=== PATIENT | female | born 1995 | race Caucasian/White ===

== ENCOUNTER 2016-11-05 15:44 | Emergency (ER) | payer SELFPAY | END 2016-11-05 16:47 | disposition home or self-care (01) | DX: J02.0 Streptococcal pharyngitis (principal); Z87.891 Personal history of nicotine dependence ==

== ENCOUNTER 2019-01-14 08:54 | Emergency (ER) | payer MEDICAID ==
--- NOTE | 2019-01-14 09:38 | ED Physician Documentation ---
PD HPI URI - Stated complaint Stated Complaint: COUGHING BLOOD/21WKS PREG - Chief complaint Chief Complaint: Resp - History obtained from History obtained from: Patient, Family - History of Present Illness Timing - onset: How many weeks ago (1) Timing duration: Weeks (1) Timing details: Gradual onset, Still present Associated symptoms: Ear pain, Nasal congestion, Rhinorrhea, Sinus pain, Productive cough, Hemoptysis Improves by: Rest, Medication Worsened by: Activity Similar symptoms before: Has not had sx before Recently seen: Clinic - Additional information Additional information: 23-year-old 2 para 1 female is 21 weeks and she has developed a cough for the past week. She is producing yellow-green phlegm she has some sinus pain especially in the right maxillary sinus and she is beginning to feel fatigued from this. She has had some bloody nose and she has coughed up some blood as well. She last saw her COPYRIGHT CLERK about 2 weeks ago at which time she had a saline infusion and was placed on iron supplements. She believes she was anemic but does not know a specific number. The patient reports decreased movement this morning. Review of Systems Constitutional: reports: Myalgias, Fatigue. 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 : None HEENT: None Psych: Depression Musculoskeletal: Chronic back pain Derm: None - Past Surgical History Past Surgical History: Yes /CITY DESIGNER: Other - Present Medications Home Medications: Ambulatory Orders Medication Instructions Recorded Confirmed Amox/Clav 875/125 [Augmentin] 1 each PO Q12H #20 tablet 01/14/19 - Allergies Allergies/Adverse Reactions: Allergies Allergy/AdvReac Type Severity Reaction Status Date / Time No Known Drug Allergies Allergy Verified 01/14/19 09:09 - Social History Does the pt smoke?: No Smoking Status: Never smoker Does the pt drink ETOH?: Yes Does the pt have substance abuse?: No - Immunizations Immunizations are current?: Yes - POLST Patient has POLST: No PD ED PE NORMAL - Vitals Vital signs reviewed: Yes (hypertensive mild ) - General General: Alert and oriented X 3, No acute distress, Well developed/nourished - HEENT HEENT: Atraumatic, PERRL, EOMI, Ears normal, Moist mucous membranes, Pharynx benign, Dentition benign, Other (There is bilateral maxillary sinus tenderness worse on the right. ) - Neck Neck: Supple, no meningeal sign, No bony TTP - Cardiac Cardiac: RRR, No murmur - Respiratory Respiratory: No respiratory distress, Clear bilaterally - Abdomen Abdomen: Soft, Non tender, Other (gravid uterus to the umbilicus non-tender. ) - Back Back: No CVA TTP, No spinal TTP - Derm Derm: Normal color, Warm and dry, No rash - Extremities Extremities: No deformity, No edema - Neuro Neuro: Alert and oriented X 3, roller coaster designer 2-12 intact, No motor deficit, No sensory deficit, Normal speech Eye Opening: Spontaneous Motor: Obeys Commands Verbal: Oriented GCS Score: 15 - Psych Psych: Normal mood, Normal affect Results - Vitals Vitals: Vital Signs - 24 hr 01/14/19 01/14/19 09:07 09:09 Temperature 36.4 C L Heart Rate 82 87 Respiratory 14 16 Rate Blood Pressure 128/87 H 128/87 H O2 Saturation 97 97 Oxygen O2 Source Room air - EKG (time done) 0919 Rate: Rate (enter#) (73) Rhythm: NSR Compare to prior EKG: Changed from prior EKG (SPT 07-07-14 rate has decreased) Computer interpretation: Agree with computer Procedures - Bedside sono Bedside sono by EMP: With use of bedside ultrasound the fetus is imaged the heart tones are 144 and the fetus does move. - IVC sono (time) 0930 Bedside IVC sono: IVC measures (cm) (1.94), Euvolemia PD MEDICAL DECISION MAKING - ED course Complexity details: reviewed results, re-evaluated patient, considered differential, d/w patient ED course: 23 y/o female who is 21 weeks has a cough and congestion and has maxillary sinusitis on exam and clear lungs. Departure - Departure Disposition: 01 Home, Self Care Clinical Impression: Acute sinusitis Condition: Stable Instructions: ED Sinusitis Abx Tx Follow-Up: Elma Mitchell DNP [Primary Care Provider] - Lynda Hernandes MD [Physician No Access] - Prescriptions: Amox/Clav 875/125 [Augmentin] 1 each PO Q12H #20 tablet Forms: Activity restrictions
[2019-01-14 09:59] VITALS: BP 126/81
== END 2019-01-14 09:59 | disposition home or self-care (01) ==
LOC: ED 08:54
DX: O99.89 Other specified diseases and conditions complicating pregnancy, childbirth and the puerperium (principal); J01.90 Acute sinusitis, unspecified; Z3A.21 21 weeks gestation of pregnancy
CPT/HCPCS: 93005; 99283

== ENCOUNTER 2019-04-12 08:11 | Observation (INO) | payer MEDICAID ==
[2019-04-12] MEDS ORDERED: LACTATED RINGERS 1,000 ML IV ONE ×2 (08:32→08:44)
[2019-04-12] MEDS ORDERED: ONDANSETRON 4 MG/2 ML VIAL IVP PRN (08:33)
[2019-04-12] MEDS ORDERED: ONDANSETRON 4 MG/2 ML VIAL ONE (08:44)
[2019-04-12] MEDS ORDERED: SODIUM CHLORIDE FLUSH 0.9% 10 ML SYRINGE ONE ×4 (08:44→23:01)
[2019-04-12] MEDS: ONDANSETRON 4 MG/2 ML VIAL IVP PRN ×3 (09:52→22:57)
[2019-04-12] MEDS: FAMOTIDINE 20 MG/2 ML VIAL IVP SCH ×2 (10:03→22:16)
[2019-04-12 10:08] LABS: BASOPHILS # (AUTO) 0.1 10^3/uL (0.0-0.1); BASOPHILS % (AUTO) 0.4 %; EOSINOPHILS % (AUTO) 0.2 %; HGB - HEMOGLOBIN 10.1 g/dL (12.0-16.0); LYMPHOCYTES # (AUTO) 1.6 10^3/uL (1.5-3.5); LYMPHOCYTES % (AUTO) 13.6 %; MEAN CORPUSCULAR HEMOGLOBIN 22.3 pg (27.0-31.0); MEAN CORPUSCULAR HGB CONC 30.1 g/dL (32.0-36.0); MEAN CORPUSCULAR VOLUME 74.3 fL (81.0-99.0); MEAN PLATELET VOLUME 9.5 fL (7.9-10.8); MONOCYTES # (AUTO) 0.5 10^3/uL (0.0-1.0); MONOCYTES % (AUTO) 4.4 %; NEUTROPHILS # (AUTO) 9.5 10^3/uL (1.5-6.6); NEUTROPHILS % (AUTO) 80.7 %; PLT - PLATELET COUNT 226 10^3/uL (130-450); RED BLOOD COUNT 4.52 10^6/uL (4.20-5.40); RED CELL DISTRIBUTION WIDTH 14.5 % (12.0-15.0); WHITE BLOOD COUNT 11.7 x10^3/uL (4.8-10.8)
[2019-04-12] MEDS: DEXTROSE 5%-LACTATED RINGERS 1,000 ML IV SCH ×2 (10:12→18:47)
[2019-04-12 10:13] LABS: BILIRUBIN,URINE NEGATIVE (NEGATIVE); GLUCOSE, URINE (UA) NEGATIVE (NEGATIVE); KETONES,URINE (UA) 40 mg/dL (NEGATIVE); LEUKOCYTE ESTERASE, URINE SMALL (NEGATIVE); NITRITE,URINE NEGATIVE (NEGATIVE); OCCULT BLOOD,URINE NEGATIVE (NEGATIVE); PH,URINE 8.5 PH (5.0-7.5); PROTEIN,URINE 30 mg/dL (NEGATIVE); UROBILINOGEN,URINE 0.2 (NORMAL) E.U./dL (NORMAL)
[2019-04-12 10:14] LABS: CLARITY,URINE SL. CLOUDY (CLEAR)
[2019-04-12 10:20] LABS: ALBUMIN 2.9 g/dL (3.2-5.5); ALBUMIN/GLOBULIN RATIO 0.8 (1.0-2.2); BILIRUBIN,TOTAL 1.1 mg/dL (0.2-1.0); CALCIUM 8.4 mg/dL (8.5-10.3); CREATININE 0.5 mg/dL (0.4-1.0); TOTAL PROTEIN 6.6 g/dL (6.7-8.2)
[2019-04-12] MEDS ORDERED: fent/BUPIV 2 MCG/0.125% 250 ML EP ONE (10:23)
[2019-04-12 10:26] LABS: BACTERIA,URINE Moderate /HPF (None Seen); RBC,URINE None Seen /HPF (0-5); SQUAMOUS EPITHELIAL CELL,UR RARE Squamous (<= Few)
[2019-04-12 10:27] LABS: AMORPHOUS SEDIMENT,UR Moderate /LPF
--- NOTE | 2019-04-12 10:28 | PREOP HISTORY & PHYSICAL ---
DATE OF SERVICE: 04/12/2019 Physician: Fran Shepherd MD PATIENT IDENTIFICATION: Patient is a 23-year-old G2, P1, ABO female whose EDC is 23 May by early visits and ultrasound. This makes her 34 weeks and 0 days. CHIEF COMPLAINT: Nausea and vomiting. HISTORY OF PRESENT ILLNESS: Patient states that since yesterday morning she has had difficulty with nausea and vomiting, has not been able to keep anything down. She has had emesis roughly 12 times. She was seen by her PHLEBOTOMIST MEDICAL LAB ASSISTANT physician yesterday. She has been taking Zofran for her nausea and vomiting with minimal success. She has had difficulty with morning sickness, roughly since 4 weeks gestational age and has had a lot of nausea and vomiting throughout her . She states she has had some chills and has felt cold. She has also had some diarrhea. She has had some left-sided abdominal pain. She denies any other family members with any nausea or vomiting at this time. She states with her first child she had difficulty with nausea and vomiting throughout her entire . LABORATORIES: Patient is noted to be A positive. Her 50 gram Glucola is in the normal range. She has an ultrasound, which was also noted to have been normal. PAST MEDICAL HISTORY: Positive for heartburn. 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 MEDICATIONS: She is takin. vitamins. 2. Zofran on a p.r.n. Basis. 3. Zantac for heartburn. ALLERGIES: NONE KNOWN. HABITS: Patient denies use of alcohol, tobacco, street or addictive drugs or cannabinoids. SOCIAL HISTORY: Patient is and lives with her spouse. 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 She is currently on leave because of her morning sickness. REVIEW OF SYSTEMS: Positive for some diabetes. OBSTETRIC HISTORY: First child was born at 39-week spontaneous vaginal delivery. was complicated with morning sickness. PHYSICAL EXAMINATION: GENERAL: Patient is a well-developed, well-nourished white female. She is somewhat restless in the bed at this time. She is sitting because of difficulty with heartburn. VITAL SIGNS: Her temperature is 36.7, pulse 80, blood pressure 129/84, respirations 18. HEENT: Pupils are equal, round. Extraocular muscles are intact. Thyroid is not palpably enlarged. Mouth is clear. HEART: Regular rate and rhythm without murmurs. LUNGS: Lung peterson are clear without rales or wheezes. BACK: No spinal or CVA tenderness noted. ABDOMEN: Soft, nontender, gravid of the appropriate size. There is no evidence of rebound, particularly in the right side of the abdomen. There is no calf tenderness or CVA tenderness. IMPRESSION: 1. A 23-year-old G2, P1 at 34 weeks gestational age. 2. Recurrent nausea and vomiting. At this point, I suspect it is a continuation of her morning sickness. PLAN: We will obtain CMP, urinalysis. We will continue with her IV. We will add D5LR to the second bag. We will utilize Zofran again 4 mg IV as well as place her on Pepcid IV. We will direct therapy as labs return. TD: 04/12/2019 10:06 MTDD
[2019-04-12] MEDS: PROMETHAZINE INJ 25 MG in SODIUM CHLORIDE 0.9% 50 ML IV PRN ×2 (11:20→17:23)
[2019-04-12 17:06] LABS: AMYLASE 118 U/L (28-100); LIPASE 90 U/L (22-51)
[2019-04-13] MEDS: DEXTROSE 5%-LACTATED RINGERS 1,000 ML IV SCH ×2 (03:22→07:53)
[2019-04-13] MEDS: ONDANSETRON 4 MG/2 ML VIAL IVP PRN (06:57)
[2019-04-13] MEDS ORDERED: SODIUM CHLORIDE FLUSH 0.9% 10 ML SYRINGE ONE (07:01)
[2019-04-13 08:10] VITALS: BP 115/70
--- NOTE | 2019-04-17 15:55 | PROVIDER PROGRESS NOTE ---
Subjective - Prog Note Date Prog Note Date: 04/12/19 Prog Note Time: 16:00 - Subjective Pt reports feeling: Improved (pt is now able to tolerate food oraly) Objective - Lab Results Fish Bones: 04/12/19 09:59 04/12/19 09:59 Assessment/Plan - Problem List (1) Hyperemesis Impression: Pt is now able to tolerate food. Discharge medication Zofram Phenergan sup 12.5 mg Zantac Followup with Ob provider.
== END 2019-04-13 09:41 | disposition home or self-care (01) ==
LOC: WFO 08:11 → FBP 08:13 → WFO 10:35 → FBP 10:36
PROVIDERS: ADMIT Obstetrics & Gynecology; ATTEND Obstetrics & Gynecology
DX: O21.0 Mild hyperemesis gravidarum (principal); Z3A.34 34 weeks gestation of pregnancy
CPT/HCPCS: 36415; 80053; 81001; 82150; 83690; 85025; 87086; 96361; 96365; 96375; 96376; 99214; G0378; J7040; J7120

== ENCOUNTER 2019-04-14 09:15 | Observation (INO) | payer MEDICAID ==
[2019-04-14] MEDS ORDERED: PROMETHAZINE INJ 12.5 MG in SODIUM CHLORIDE 0.9% 50 ML IV PRN (09:54)
[2019-04-14] MEDS ORDERED: LACTATED RINGERS 1,000 ML IV ONE (09:55)
[2019-04-14] MEDS ORDERED: DEXTROSE 5%-LACTATED RINGERS 1,000 ML IV SCH (10:00)
[2019-04-14] MEDS ORDERED: SODIUM CHLORIDE FLUSH 0.9% 10 ML SYRINGE ONE ×2 (10:10→20:19)
[2019-04-14] MEDS: ONDANSETRON 4 MG/2 ML VIAL IVP PRN ×2 (10:15→12:19)
[2019-04-14 10:31] LABS: BASOPHILS # (AUTO) 0.1 10^3/uL (0.0-0.1); BASOPHILS % (AUTO) 0.6 %; EOSINOPHILS % (AUTO) 0.3 %; LYMPHOCYTES # (AUTO) 2.2 10^3/uL (1.5-3.5); LYMPHOCYTES % (AUTO) 22.3 %; MEAN CORPUSCULAR HEMOGLOBIN 23.1 pg (27.0-31.0); MEAN CORPUSCULAR HGB CONC 31.4 g/dL (32.0-36.0); MEAN CORPUSCULAR VOLUME 73.4 fL (81.0-99.0); MEAN PLATELET VOLUME 9.3 fL (7.9-10.8); MONOCYTES # (AUTO) 0.7 10^3/uL (0.0-1.0); MONOCYTES % (AUTO) 6.6 %; NEUTROPHILS # (AUTO) 6.9 10^3/uL (1.5-6.6); NEUTROPHILS % (AUTO) 69.5 %; PLT - PLATELET COUNT 240 10^3/uL (130-450); RED BLOOD COUNT 4.33 10^6/uL (4.20-5.40); RED CELL DISTRIBUTION WIDTH 14.4 % (12.0-15.0)
[2019-04-14 10:33] LABS: BILIRUBIN,URINE NEGATIVE (NEGATIVE); GLUCOSE, URINE (UA) NEGATIVE (NEGATIVE); KETONES,URINE (UA) 15 mg/dL (NEGATIVE); LEUKOCYTE ESTERASE, URINE SMALL (NEGATIVE); NITRITE,URINE NEGATIVE (NEGATIVE); OCCULT BLOOD,URINE NEGATIVE (NEGATIVE); PH,URINE 8.5 PH (5.0-7.5); PROTEIN,URINE TRACE mg/dL (NEGATIVE); UROBILINOGEN,URINE 0.2 (NORMAL) E.U./dL (NORMAL)
[2019-04-14 10:43] LABS: ALBUMIN 2.9 g/dL (3.2-5.5); ALBUMIN/GLOBULIN RATIO 0.8 (1.0-2.2); BILIRUBIN,TOTAL 0.8 mg/dL (0.2-1.0); CALCIUM 8.4 mg/dL (8.5-10.3); CREATININE 0.4 mg/dL (0.4-1.0); TOTAL PROTEIN 6.4 g/dL (6.7-8.2)
[2019-04-14 10:43] LABS: CLARITY,URINE HAZY (CLEAR)
[2019-04-14 10:51] LABS: AMORPHOUS SEDIMENT,UR Few /LPF; BACTERIA,URINE Rare /HPF (None Seen); RBC,URINE 0-5 /HPF (0-5); SQUAMOUS EPITHELIAL CELL,UR FEW Squamous (<= Few)
[2019-04-14] MEDS ORDERED: diphenhydrAMINE INJ 50 MG/ML VIAL IVP PRN (11:16)
[2019-04-14 11:17] LABS: AMYLASE 69 U/L (28-100); LIPASE 35 U/L (22-51)
[2019-04-14] MEDS: FAMOTIDINE 20 MG/2 ML VIAL IVP SCH ×2 (11:27→21:45)
[2019-04-14] MEDS: ceFAZolin 2 GM in SODIUM CHLORIDE 0.9% 100ML 100 ML IV SCH ×2 (11:42→20:19)
[2019-04-14] MEDS ORDERED: MORPHINE 10 MG/ML VIAL IVP ONE (12:01)
[2019-04-14] MEDS ORDERED: ONDANSETRON 4 MG/2 ML VIAL IVP PRN (12:14)
[2019-04-14] MEDS: DEXTROSE 5%-LACTATED RINGERS 1,000 ML IV SCH ×3 (12:20→21:00)
--- NOTE | 2019-04-14 12:25 | Ultrasound Report ---
Reason: nausea, vomiting, UQ pain, elevated amylase, lipas Procedure Date: 04/14/2019 Accession Number: [id number] / [id number] Procedure: US - Abdomen Limited CPT Code: FULL RESULT: EXAM: ABDOMEN LIMITED EXAM DATE: 04/14/2019 10:43 AM INDICATION: Nausea, vomiting, UQ pain, elevated amylase, lipase. COMPARISONS: ABDOMEN/PELVIS W/ 04/06/2016. FINDINGS: Liver: Normal in size and echotexture. Limited visualization of the left liver due to body habitus and position of the liver high in the upper abdomen. Right liver measures 15 cm. Main portal vein flow: Hepatopetal. Gallbladder: Normal. No stones, wall thickening, or sonographic Salazar's sign. Biliary System: CBD measures 4 mm. No intrahepatic or extrahepatic ductal dilatation. Pancreas: Obscured by bowel gas. Right kidney: 11 cm. Dilated right renal pelvis measures 18 mm. Distal right ureter measures 15 mm. Abdominal aorta and IVC: Normal. Other: Study limited by third trimester and overlying bowel and bowel gas. IMPRESSION: 1. Study limited by advanced . 2. Left liver lobe not well seen due to superior position of the liver and high in the upper abdomen. Given the limitations, no liver mass or intrahepatic bile duct dilation. 3. Normal gallbladder and common bile duct. Pancreas largely obscured by bowel gas. 4. Moderate right hydronephrosis. No definite stone or mass. Hydronephrosis may be secondary to advanced or distal ureteral stone. 5. Pancreas not well seen due to bowel gas. RADIA
[2019-04-14] MEDS ORDERED: oxyCODONE 5 MG TABLET PO PRN (13:00)
--- NOTE | 2019-04-14 20:09 | PROVIDER PROGRESS NOTE ---
Subjective - Prog Note Date Prog Note Date: 04/14/19 Prog Note Time: 20:06 - Subjective Pt reports feeling: Improved (Pain is 2/10. tolerating food in small ammounts. spirits much improved) Objective - Vital Signs/Intake & Output Reviewed Vital Signs: Yes Vital Signs: Vital Signs x48h Temp Pulse Resp BP Pulse Ox 04/14/19 19:46 37 C 76 18 116/66 99 04/14/19 15:49 36.5 C 80 18 122/73 97 04/14/19 12:23 36.5 C 77 16 129/77 97 Intake & Output: Intake & Output 04/11/19 04/12/19 04/13/19 04/14/19 23:59 23:59 23:59 23:59 Intake Total 3092.5 Output Total 1050 Balance 2042.5 - Objective Back: positive: CVA tenderness (R) (improved from this AM) Neurologic/Psychiatric: positive: Oriented x3 - Lab Results Fish Bones: 04/14/19 10:15 04/14/19 10:15 Other Labs: Lab Results x24hrs 04/14/19 04/14/19 04/14/19 Range/Units 10:15 10:15 10:15 WBC 10.0 (4.8-10.8) x10^3/uL RBC 4.33 (4.20-5.40) 10^6/uL Hgb 10.0 L (12.0-16.0) g/dL Hct 31.8 L (37.0-47.0) % MCV 73.4 L (81.0-99.0) fL MCH 23.1 L (27.0-31.0) pg MCHC 31.4 L (32.0-36.0) g/dL RDW 14.4 (12.0-15.0) % Plt Count 240 (130-450) 10^3/uL MPV 9.3 (7.9-10.8) fL Neut # (Auto) 6.9 H (1.5-6.6) 10^3/uL Lymph # (Auto) 2.2 (1.5-3.5) 10^3/uL [place] # (Auto) 0.7 (0.0-1.0) 10^3/uL Eos # (Auto) 0.0 (0.0-0.7) 10^3/uL Baso # (Auto) 0.1 (0.0-0.1) 10^3/uL Absolute Nucleated RBC 0.00 x10^3/uL Nucleated RBC % 0.0 /100WBC Sodium 136 (135-145) mmol/L Potassium 3.3 L (3.5-5.0) mmol/L Chloride 104 (101-111) mmol/L Carbon Dioxide 20 L (21-32) mmol/L Anion Gap 12.0 (6-13) BUN 6 (6-20) mg/dL Creatinine 0.4 (0.4-1.0) mg/dL Estimated GFR (MDRD) 194 (>89) Glucose 85 (70-100) mg/dL Calcium 8.4 L (8.5-10.3) mg/dL Total Bilirubin 0.8 (0.2-1.0) mg/dL AST 20 (10-42) IU/L ALT 15 (10-60) IU/L Alkaline Phosphatase 116 (42-121) IU/L Total Protein 6.4 L (6.7-8.2) g/dL Albumin 2.9 L (3.2-5.5) g/dL Globulin 3.5 (2.1-4.2) g/dL Albumin/Globulin Ratio 0.8 L (1.0-2.2) Amylase 69 (28-100) U/L Lipase 35 (22-51) U/L Urine Color Urine Clarity (CLEAR) Urine pH (5.0-7.5) PH Ur Specific [place] (1.002-1.030) Urine Protein (NEGATIVE) mg/dL Urine Glucose (UA) (NEGATIVE) mg/dL Urine Ketones (NEGATIVE) mg/dL Urine Occult Blood (NEGATIVE) Urine Nitrite (NEGATIVE) Urine Bilirubin (NEGATIVE) Urine Urobilinogen (NORMAL) E.U./dL Ur Leukocyte Esterase (NEGATIVE) Urine RBC (0-5) /HPF Urine WBC (0-5) /HPF Ur Squamous Epith Cells (<= Few) Amorphous Sediment /LPF Urine Bacteria (None Seen) /HPF Urine Culture Comments 04/14/19 Range/Units 09:20 WBC (4.8-10.8) x10^3/uL RBC (4.20-5.40) 10^6/uL Hgb (12.0-16.0) g/dL Hct (37.0-47.0) % MCV (81.0-99.0) fL MCH (27.0-31.0) pg MCHC (32.0-36.0) g/dL RDW (12.0-15.0) % Plt Count (130-450) 10^3/uL MPV (7.9-10.8) fL Neut # (Auto) (1.5-6.6) 10^3/uL Lymph # (Auto) (1.5-3.5) 10^3/uL [place] # (Auto) (0.0-1.0) 10^3/uL Eos # (Auto) (0.0-0.7) 10^3/uL Baso # (Auto) (0.0-0.1) 10^3/uL Absolute Nucleated RBC x10^3/uL Nucleated RBC % /100WBC Sodium (135-145) mmol/L Potassium (3.5-5.0) mmol/L Chloride (101-111) mmol/L Carbon Dioxide (21-32) mmol/L Anion Gap (6-13) BUN (6-20) mg/dL Creatinine (0.4-1.0) mg/dL Estimated GFR (MDRD) (>89) Glucose (70-100) mg/dL Calcium (8.5-10.3) mg/dL Total Bilirubin (0.2-1.0) mg/dL AST (10-42) IU/L ALT (10-60) IU/L Alkaline Phosphatase (42-121) IU/L Total Protein (6.7-8.2) g/dL Albumin (3.2-5.5) g/dL Globulin (2.1-4.2) g/dL Albumin/Globulin Ratio (1.0-2.2) Amylase (28-100) U/L Lipase (22-51) U/L Urine Color YELLOW Urine Clarity HAZY (CLEAR) Urine pH 8.5 H (5.0-7.5) PH Ur Specific [place] 1.010 (1.002-1.030) Urine Protein TRACE (NEGATIVE) mg/dL Urine Glucose (UA) NEGATIVE (NEGATIVE) mg/dL Urine Ketones 15 H (NEGATIVE) mg/dL Urine Occult Blood NEGATIVE (NEGATIVE) Urine Nitrite NEGATIVE (NEGATIVE) Urine Bilirubin NEGATIVE (NEGATIVE) Urine Urobilinogen 0.2 (NORMAL) (NORMAL) E.U./dL Ur Leukocyte Esterase SMALL H (NEGATIVE) Urine RBC 0-5 (0-5) /HPF Urine WBC 0-3 (0-5) /HPF Ur Squamous Epith Cells FEW Squamous (<= Few) Amorphous Sediment Few /LPF Urine Bacteria Rare (None Seen) /HPF Urine Culture Comments INDICATED Assessment/Plan - Problem List (1) Hyperemesis arising during Impression: improving with IV fluids. (2) Pyelonephritis affecting in third trimester Impression: flank pain improving. will need 24-48 hours afebrile
[2019-04-14] MEDS: DOCUSATE SODIUM 100 MG CAPSULE PO SCH (21:46)
[2019-04-15] MEDS: DEXTROSE 5%-LACTATED RINGERS 1,000 ML IV SCH ×2 (02:39→11:19)
[2019-04-15] MEDS: ceFAZolin 2 GM in SODIUM CHLORIDE 0.9% 100ML 100 ML IV SCH ×4 (03:44→19:54)
--- NOTE | 2019-04-15 08:01 | PROVIDER PROGRESS NOTE ---
Subjective - Prog Note Date Prog Note Date: 04/15/19 Prog Note Time: 07:59 - Subjective Pt reports feeling: Improved Subjective: S - H she is feeling much better today.She denies any nausea or vomiting. She denies any flank pain. Objective - Vital Signs/Intake & Output Vital Signs: Vital Signs x48h Temp Pulse Resp BP Pulse Ox 04/15/19 03:42 36.5 C 79 16 99/58 L 98 Intake & Output: Intake & Output 04/12/19 04/13/19 04/14/19 04/15/19 23:59 23:59 23:59 23:59 Intake Total 3292.5 1286.25 Output Total 1050 900 Balance 2242.5 386.25 - Lab Results Fish Bones: 04/14/19 10:15 04/14/19 10:15 Other Labs: Lab Results x24hrs 04/14/19 04/14/19 04/14/19 Range/Units 10:15 10:15 10:15 WBC 10.0 (4.8-10.8) x10^3/uL RBC 4.33 (4.20-5.40) 10^6/uL Hgb 10.0 L (12.0-16.0) g/dL Hct 31.8 L (37.0-47.0) % MCV 73.4 L (81.0-99.0) fL MCH 23.1 L (27.0-31.0) pg MCHC 31.4 L (32.0-36.0) g/dL RDW 14.4 (12.0-15.0) % Plt Count 240 (130-450) 10^3/uL MPV 9.3 (7.9-10.8) fL Neut # (Auto) 6.9 H (1.5-6.6) 10^3/uL Lymph # (Auto) 2.2 (1.5-3.5) 10^3/uL [place] # (Auto) 0.7 (0.0-1.0) 10^3/uL Eos # (Auto) 0.0 (0.0-0.7) 10^3/uL Baso # (Auto) 0.1 (0.0-0.1) 10^3/uL Absolute Nucleated RBC 0.00 x10^3/uL Nucleated RBC % 0.0 /100WBC Sodium 136 (135-145) mmol/L Potassium 3.3 L (3.5-5.0) mmol/L Chloride 104 (101-111) mmol/L Carbon Dioxide 20 L (21-32) mmol/L Anion Gap 12.0 (6-13) BUN 6 (6-20) mg/dL Creatinine 0.4 (0.4-1.0) mg/dL Estimated GFR (MDRD) 194 (>89) Glucose 85 (70-100) mg/dL Calcium 8.4 L (8.5-10.3) mg/dL Total Bilirubin 0.8 (0.2-1.0) mg/dL AST 20 (10-42) IU/L ALT 15 (10-60) IU/L Alkaline Phosphatase 116 (42-121) IU/L Total Protein 6.4 L (6.7-8.2) g/dL Albumin 2.9 L (3.2-5.5) g/dL Globulin 3.5 (2.1-4.2) g/dL Albumin/Globulin Ratio 0.8 L (1.0-2.2) Amylase 69 (28-100) U/L Lipase 35 (22-51) U/L Urine Color Urine Clarity (CLEAR) Urine pH (5.0-7.5) PH Ur Specific [place] (1.002-1.030) Urine Protein (NEGATIVE) mg/dL Urine Glucose (UA) (NEGATIVE) mg/dL Urine Ketones (NEGATIVE) mg/dL Urine Occult Blood (NEGATIVE) Urine Nitrite (NEGATIVE) Urine Bilirubin (NEGATIVE) Urine Urobilinogen (NORMAL) E.U./dL Ur Leukocyte Esterase (NEGATIVE) Urine RBC (0-5) /HPF Urine WBC (0-5) /HPF Ur Squamous Epith Cells (<= Few) Amorphous Sediment /LPF Urine Bacteria (None Seen) /HPF Urine Culture Comments 04/14/19 Range/Units 09:20 WBC (4.8-10.8) x10^3/uL RBC (4.20-5.40) 10^6/uL Hgb (12.0-16.0) g/dL Hct (37.0-47.0) % MCV (81.0-99.0) fL MCH (27.0-31.0) pg MCHC (32.0-36.0) g/dL RDW (12.0-15.0) % Plt Count (130-450) 10^3/uL MPV (7.9-10.8) fL Neut # (Auto) (1.5-6.6) 10^3/uL Lymph # (Auto) (1.5-3.5) 10^3/uL [place] # (Auto) (0.0-1.0) 10^3/uL Eos # (Auto) (0.0-0.7) 10^3/uL Baso # (Auto) (0.0-0.1) 10^3/uL Absolute Nucleated RBC x10^3/uL Nucleated RBC % /100WBC Sodium (135-145) mmol/L Potassium (3.5-5.0) mmol/L Chloride (101-111) mmol/L Carbon Dioxide (21-32) mmol/L Anion Gap (6-13) BUN (6-20) mg/dL Creatinine (0.4-1.0) mg/dL Estimated GFR (MDRD) (>89) Glucose (70-100) mg/dL Calcium (8.5-10.3) mg/dL Total Bilirubin (0.2-1.0) mg/dL AST (10-42) IU/L ALT (10-60) IU/L Alkaline Phosphatase (42-121) IU/L Total Protein (6.7-8.2) g/dL Albumin (3.2-5.5) g/dL Globulin (2.1-4.2) g/dL Albumin/Globulin Ratio (1.0-2.2) Amylase (28-100) U/L Lipase (22-51) U/L Urine Color YELLOW Urine Clarity HAZY (CLEAR) Urine pH 8.5 H (5.0-7.5) PH Ur Specific [place] 1.010 (1.002-1.030) Urine Protein TRACE (NEGATIVE) mg/dL Urine Glucose (UA) NEGATIVE (NEGATIVE) mg/dL Urine Ketones 15 H (NEGATIVE) mg/dL Urine Occult Blood NEGATIVE (NEGATIVE) Urine Nitrite NEGATIVE (NEGATIVE) Urine Bilirubin NEGATIVE (NEGATIVE) Urine Urobilinogen 0.2 (NORMAL) (NORMAL) E.U./dL Ur Leukocyte Esterase SMALL H (NEGATIVE) Urine RBC 0-5 (0-5) /HPF Urine WBC 0-3 (0-5) /HPF Ur Squamous Epith Cells FEW Squamous (<= Few) Amorphous Sediment Few /LPF Urine Bacteria Rare (None Seen) /HPF Urine Culture Comments INDICATED - Other Results/Comments Other Results/Comments: O - Lungs: Lungs clear to auscultation bilaterally without wheezes, rales or Rhonchi Heart: Heart has regular rate and rhythm without murmur Abdomen: The abdomen is soft, pliable and nontender. The uterus is soft and nontender.The size seems much smaller however than her dates.No contractions are noted.There is a reactive NST noted. Assessment/Plan - Problem List (1) 34 weeks gestation of Impression: 1. Intrauterine at 34 and 4 days gestation 2.Hyperemesis-improved 3.Possible pyelonephritis-improved Plan-We will continue with the orders of the admitting physician. As long as she remains stable and as well today she will be discharged tomorrow. In the meantime we will obtain an OB ultrasound. It does seem that the fetus is small for dates.
--- NOTE | 2019-04-15 08:10 | HISTORY & PHYSICAL EXAMINATION ---
DATE OF SERVICE: 04/14/2019 Physician: Fran Shepherd MD IDENTIFICATION: Patient is a 23-year-old G2, P1, AB0 female whose EDC is 23 May by early ultrasound and visit. She is 34+2 weeks. CHIEF COMPLAINT: Nausea, vomiting, right flank pain. HISTORY OF PRESENT ILLNESS: Patient's has been complicated with morning sickness throughout her entire . She was seen on 04/12/2019, at which time she was admitted for IV hydration. After 24 hours, and utilization of Zofran, Phenergan, and H2 blockers, we were able to control her nausea. She went home that evening and that evening was eating a burrito, at which time she developed nausea and vomiting again. She was continuing to take her medication of Zofran, Phenergan, as well as Zantac. She states the middle of the night, she developed right flank pain and tenderness. She lists this is roughly a 4/10. She continues to have the inability to keep any fluids down or food. Her laboratory shows a white count of 10, her hemoglobin is 10, hematocrit is 31.8. Platelets are 240. Of note is the fact that her potassium is mildly depressed at 3.3. Her amylase and lipase, which previously were elevated, are now within normal limits of 20 and 15. Her calcium is minimally depressed at 8.4. Her urine, however, shows evidence of some small leukocytes. She has 0-3 WBCs per high power field and 0-5 RBCs per high power field. She is noted to have ketones at 15. Specific gravity is 1.010. Her previous urine grew out 10- 15,000 cultures per mL, which was polymicrobial and was suggestive of skin contaminants. PAST MEDICAL HISTORY: Positive for heartburn. SURGICAL HISTORY: She has had a cystic teratoma removed from her right ovary, 5 years ago. MEDICATIONS ON DISCHARGE 1. vitamins. 2. Zantac. 3. Zofran. 4. Phenergan suppositories. ALLERGIES: NONE KNOWN. HABITS: Negative. SOCIAL HISTORY: Patient is , lives with her spouse; is currently on leave because of her morning sickness. PHYSICAL EXAMINATION GENERAL: A well-developed, well-nourished female, who is intermittently vomiting. She appears to be somewhat uncomfortable. VITAL SIGNS: Temperature is 36.5. Heart rate is running in the 60s-80s, blood pressures 117/64, respirations 20, saturating 100% on room air. HEENT: Pupils are equal, round. Extraocular muscles are intact. CARDIOVASCULAR: Regular rate and rhythm without murmurs. LUNGS: Lung peterson are clear without rales or wheezes. BACK: She has some right flank tenderness to percussion. ABDOMEN: Soft, nontender. The gallbladder is nontender. She had an ultrasound, which showed evidence of a normal gallbladder. She is noted to have a right hydronephrosis, which is compatible with her state, as well as her flank tenderness. IMPRESSION 1. A 23-year-old G2, P1 female 34.2 weeks. 2. Recurrent nausea and vomiting with minimal electrolyte change. 3. Hydronephrosis. 4. Possible pyelonephritis. PLAN 1. The patient has been admitted. 2. She has been given Zofran 4 mg, which has been increased to 8 mg. 3. She is taking Benadryl 25 mg IV q.6 hours. 4. Phenergan 12.5 mg IV q.8 hours. 5. She is also on famotidine 20 mg IV b.i.d. 6. Because of the question of pyelonephritis, she has been started on Ancef 2 grams IV q.8 hours. 7. For pain, she has received 5 mg of morphine. We are aware that potentially could exacerbate her nausea. TD: 04/14/2019 12:29 MTDD
[2019-04-15] MEDS: FAMOTIDINE 20 MG/2 ML VIAL IVP SCH ×2 (09:03→21:16)
[2019-04-15] MEDS: DOCUSATE SODIUM 100 MG CAPSULE PO SCH (09:04)
[2019-04-15] MEDS ORDERED: SODIUM CHLORIDE FLUSH 0.9% 10 ML SYRINGE ONE (09:08)
--- NOTE | 2019-04-15 16:17 | Ultrasound Report ---
Reason: fundal height smaller than expected for gestation Procedure Date: 04/15/2019 Accession Number: [id number] / [id number] Procedure: US - OB F/U or Repeat CPT Code: FULL RESULT: EXAM: FOLLOW-UP OBSTETRICAL ULTRASOUND EXAM DATE: 04/15/2019 09:36 AM. CLINICAL HISTORY: Fundal height smaller than expected for gestation. COMPARISON: OB F/U OR REPEAT 04/15/2019 10:24 AM. TECHNIQUE: Real-time sonographic evaluation of the fetus performed by the boat oar maker. Multiple hvac sales representative static images were saved for review. DATING: Established EGA 34 weeks 4 days with BALJINDER 05/23/2019 based on working due date. EGA 34 weeks 3 days with BALJINDER 05/24/2019 based on the current ultrasound. GENERAL EVALUATION Morales . Cardiac activity: 159 bpm. movement: Visualized. Presentation: Cephalic. Placenta: Anterior and to the right position. Amniotic fluid: Normal. YU 11.5 cm. MVP 5.7 cm. BIOMETRY Bi-Parietal Diameter (BPD): 8.8 cm, 35 weeks 2 days Head Circumference (HC): 31.5 cm, 35 weeks 2 days Abdominal Circumference (AC): 30 cm, 33 weeks 6 days Femur Length (FL): 6.5 cm, 33 weeks 4 days Estimated Weight: 2366 g, 33rd percentile for 34 weeks 4 days. ANATOMY Anterior posterior renal pelvic diameter measures 6 mm, mild hydronephrosis. IMPRESSION: 1. Morales live intrauterine with gestational age 34 weeks 4 days based on working due date. 2. Estimated weight is within expected limits for assigned dating. 3. Mild left hydronephrosis as above. RADIA
[2019-04-15] MEDS ORDERED: SODIUM CHLORIDE FLUSH 0.9% 10 ML SYRINGE IVP PRN (18:33)
[2019-04-16] MEDS: ceFAZolin 2 GM in SODIUM CHLORIDE 0.9% 100ML 100 ML IV SCH (03:43)
[2019-04-16 08:24] VITALS: BP 116/67
[2019-04-16] MEDS: DOCUSATE SODIUM 100 MG CAPSULE PO SCH (08:24)
--- NOTE | 2019-04-16 08:32 | PROVIDER PROGRESS NOTE ---
Subjective - Prog Note Date Prog Note Date: 04/16/19 Prog Note Time: 08:30 - Subjective Pt reports feeling: Improved (Pain resolved completely, tolerating a regular diet. good FM.) Objective - Vital Signs/Intake & Output Reviewed Vital Signs: Yes Vital Signs: Vital Signs x48h Temp Pulse Resp BP Pulse Ox 04/16/19 08:00 36.5 C 98 16 116/67 04/16/19 03:51 36.6 C 64 16 110/58 L 98 Intake & Output: Intake & Output 04/13/19 04/14/19 04/15/19 04/16/19 23:59 23:59 23:59 23:59 Intake Total 3292.5 3856.25 600 Output Total 1050 3200 900 Balance 2242.5 656.25 -300 - Objective General Appearance: positive: No acute distress, Alert Respiratory: positive: Chest non-tender, No respiratory distress, Breath sounds nml Cardiovascular: positive: Regular rate & rhythm, No murmur, No gallop Abdomen: positive: Non-tender, No organomegaly, Nml bowel sounds, Mass (Gravid) Back: negative: CVA tenderness (R), CVA tenderness (L) Extremities: positive: Non-tender, Full ROM, Nml appearance Neurologic/Psychiatric: positive: Oriented x3 - Lab Results Fish Bones: 04/14/19 10:15 04/14/19 10:15 Assessment/Plan - Problem List (1) Hyperemesis arising during Impression: Resolved pt to continue with Antiemetics (2) Pyelonephritis affecting in third trimester Impression: unsure of actual [place] vs [place]. will continue with keflex at home for 7days total. Cultures negative. (3) 34 weeks gestation of Impression: pt to follow up with Ob fro routine care.
--- NOTE | 2019-04-16 08:42 | Discharge Plan ---
Discharge Plan Problem Reviewed?: Yes Disposition: Home, Self Care Condition: Good Diet: Regular Activity Restrictions: No Restrictions Shower Restrictions: No Driving Restrictions: No Weight Bearing: Full Weight Additional Instructions or Follow Up instructions: Followup with OB complete Antibiotics No Smoking: If you smoke, Please STOP! Call for help.
--- NOTE | 2019-04-16 09:12 | DISCHARGE SUMMARY ---
Physician: Fran Shepherd MD DATE OF ADMISSION: 04/14/2019 DATE OF DISCHARGE: 04/16/2019 ADMITTING DIAGNOSES 1. Forty weeks gestation. 2. Nausea and vomiting. 3. Pyelonephritis. DISCHARGE DIAGNOSES 1. Forty weeks gestation. 2. Nausea and vomiting. 3. Pyelonephritis. 4. Possible pyelonephritis versus hydronephrosis. PRESENTING HISTORY: Patient is a 23-year-old G2, P1, female whose EDC is 23 May. This made her 34+2 weeks. Her had been complicated with morning sickness throughout the entire . This became particularly worse on April 12, at which time she was admitted for IV hydration. She responded. She was sent home in 24 hours. However, she returned on the with inability to keep any food or fluids down, despite any medications. LABORATORIES: On admission, her sodium was noted to be within normal limits; however, her potassium was 3.3. Her glucose was 85. Her calcium was minimally depressed at 8.4. Amylase and lipase were noted to be normal; however, previously this has been elevated. Her white count was 10.0, hemoglobin was 10.0, hematocrit was 31.8, platelets were 240. Urinalysis showed her to have specific gravity of 1.010. Her ketones were high at 15. She was noted to have small leukocyte esterase, as well as 0-3 WBCs per high-power field. She had very few squamous cells. Culture was indicated and performed. Her ultrasound showed evidence of a moderate hydronephrosis. She had flank tenderness on the physical examination. HOSPITAL COURSE: Patient was admitted, started on IV fluids and antiemetics to include Zofran, Phenergan, Benadryl, promethazine IV. She was also placed on 2 grams of Ancef because of the question of whether she had pyelonephritis. During her hospitalization, her nausea and vomiting resolved with medication. Her flank tenderness, which was initially present, has totally resolved at this particular time. However, her urine cultures have been negative. We are discharging her to home today with instruction to follow up with her OB doctor. She is being sent home on her antiemetics, including Zofran, Compazine suppositories, Zantac. We will also continue her antibiotics of Keflex 250 q.i.d. for a total of 7 days or 5 additional days. She has been instructed to follow up with her OB doctor. TD: 04/16/2019 08:42 SHELLEY
== END 2019-04-16 08:45 | disposition home or self-care (01) ==
LOC: WFO 09:15 → FBP 09:17 → WFO 12:04 → FBP 12:05
PROVIDERS: ADMIT Obstetrics & Gynecology; ATTEND Obstetrics & Gynecology
DX: O21.2 Late vomiting of pregnancy (principal); O99.283 Endocrine, nutritional and metabolic diseases complicating pregnancy, third trimester; E87.6 Hypokalemia; E83.51 Hypocalcemia; O99.89 Other specified diseases and conditions complicating pregnancy, childbirth and the puerperium; N13.30 Unspecified hydronephrosis; Z3A.34 34 weeks gestation of pregnancy; Z87.42 Personal history of other diseases of the female genital tract
CPT/HCPCS: 76705; 76816; 80053; 81001; 82150; 83690; 85025; 87086; 96361; 96365; 96366; 96367; 96375; 96376; 99214; A9270; G0378; J1200; J7040; J7120

== ENCOUNTER 2019-05-06 20:46 | Inpatient (IN) | payer MEDICAID ==
[2019-05-06] MEDS ORDERED: SODIUM CHLORIDE FLUSH 0.9% 10 ML SYRINGE IVP PRN (22:48)
[2019-05-06] MEDS ORDERED: LACTATED RINGERS 1,000 ML IV SCH (23:00)
[2019-05-06] MEDS ORDERED: NALBUPHINE 10 MG/1 ML IVP PRN (23:20)
--- NOTE | 2019-05-06 23:23 | HISTORY & PHYSICAL EXAMINATION ---
Admit History - Visit Reason Visit Reason: Contractions (The patient came in tonight complaining of increasing contractions all day. She had been 2 cm in the office on her prior visit. She is a 2 para 1-0-0-1 with an BALJINDER of 05/23/2019 making her approximately 37 weeks and 4 days gestation.She had previous care in [place] and is recently transferred care to [facility].She had been admitted in April for a possible kidney infection. She has not had any other problems during this .Upon arrival nursing had checked her and she was found to be 6 cm dilatedMembranes were intact. She denied any vaginal bleeding or fluid. She was alberto about every 6 to 10 minutes.) - : 2 Parity: 1 Care: positive: Other ([place]) Complications This : positive: Other (Possible kidney infection) Smoking Status: Never smoker - Mother's Labs Mother's Blood Type: positive: A Mother's RH: positive: Positive GBS: positive: Group B Step Negative Rubella Status: positive: Immune Meds/Allgy - Allergies Allergies/Adverse Reactions: Allergies Allergy/AdvReac Type Severity Reaction Status Date / Time No Known Drug Allergies Allergy Verified 01/14/19 09:09 Review of Systems - Constitutional Constitutional: denies: Fatigue, Fever, Chills, Malaise - Eyes Eyes: denies: Pain, Blurred vision, Spots in vision, Field loss, Vision loss, Dipolpia - Ears, Nose & Throat Ears, Nose & Throat: denies: Ear pain, Hearing loss, Vertigo, Nasal discharge, Nosebleeds, Sore throat, Hoarseness, Mouth lesions, Dental pain - Cardiovascular Cariovascular: denies: Irregular heart rate, Palpitations, Chest pain, Edema - Respiratory Respiratory: denies: Cough, Sputum production, Wheezing, Hemoptysis, Orthopnea, SOB at rest - Gastrointestinal Gastrointestinal: denies: Abdominal pain, Abdominal distention, Constipation, Diarrhea, Change in bowel habits, Nausea, Vomiting - Genitourinary Genitourinary: denies: Dysuria, Frequency, Urgency, Hematuria, Incontinence, Flank pain - Musculoskeletal Musculoskeletal: denies: Muscle pain, Back pain, Muscle aches, Stiffness, Gout, Joint pain - Integumentary Integumentary: denies: Rash, Pruritis, Lesions, Dryness, Lumps - Neurological Neurological: denies: General weakness, Focal weakness, Headache, Dizziness, Numbness - Psychiatric Psychiatric: denies: Depression, Anxiety, Suicidal, Delusions, Hallucinations - Endocrine Endocrine: denies: Polyuria, Polydypsia, Polyphagia - Hematologic/Lymphatic Hematologic/Lymphatic: denies: Anemia, Bruising, Petechiae, Blood clots, Lymphadenopathy - All Other Systems All Other Systems: reports: Reviewed and negative Physical - Abdominal Exam Vital Signs: Temp Pulse Resp BP Pulse Ox 36.6 C 80 18 129/65 99 05/06/19 21:02 05/06/19 21:02 05/06/19 21:02 05/06/19 21:02 05/06/19 21:02 Contraction Frequency (min/apart): 4-6 Contraction Intensity: positive: Moderate to strong Uterine Resting Tone: positive: Soft - Monitoring Strip Review: positive: Category I - Presentation Presentation: positive: Vertex - Vaginal Exam Membranes: positive: Membranes ruptured (An amniotomy was performed with return of a large amount of clear fluid.) Dilation (in cm): 8 Effacement (%): 90 Station: positive: 0 Cervical Position: positive: Anterior - Speculum Exam Speculum Exam Performed: positive: No Plan for Labor - Plan For Labor I expect patient to be DC'd or transferred within 96 hours.: Yes Plan for Labor: Impression: 1. intrauterine at 37 weeks 4 days gestation 2. Active labor Plan: The patient is been admitted with usual labor orders.We will continue to follow her closely. Delivery is expected soon.
[2019-05-06] MEDS ORDERED: OXYTOCIN/DEXTROSE 5 % 30 UNIT/500 ML BAG IV ONE (23:25)
[2019-05-06 23:50] LABS: BASOPHILS # (AUTO) 0.1 10^3/uL (0.0-0.1); BASOPHILS % (AUTO) 0.7 %; EOSINOPHILS # (AUTO) 1.1 10^3/uL (0.0-0.7); EOSINOPHILS % (AUTO) 9.4 %; HGB - HEMOGLOBIN 9.8 g/dL (12.0-16.0); LYMPHOCYTES % (AUTO) 25.2 %; MEAN CORPUSCULAR HEMOGLOBIN 21.6 pg (27.0-31.0); MEAN CORPUSCULAR HGB CONC 29.9 g/dL (32.0-36.0); MEAN CORPUSCULAR VOLUME 72.2 fL (81.0-99.0); MEAN PLATELET VOLUME 10.1 fL (7.9-10.8); MONOCYTES # (AUTO) 0.8 10^3/uL (0.0-1.0); NEUTROPHILS # (AUTO) 6.7 10^3/uL (1.5-6.6); NEUTROPHILS % (AUTO) 57.3 %; PLT - PLATELET COUNT 299 10^3/uL (130-450); RED BLOOD COUNT 4.54 10^6/uL (4.20-5.40); RED CELL DISTRIBUTION WIDTH 15.5 % (12.0-15.0); WHITE BLOOD COUNT 11.7 x10^3/uL (4.8-10.8)
[2019-05-07 00:20] LABS: PLATELET ESTIMATE, MANUAL NORMAL (130-450,000) (NORMAL); PLATELET MORPHOLOGY NORMAL APPEARANCE (NORMAL); RBC MORPHOLOGY (MULTIPLE) 1+ HYPOCHROMASIA (NORMAL)
--- NOTE | 2019-05-07 00:35 | PROVIDER PROGRESS NOTE ---
Labor Progress Note - Uterine Monitoring Contraction Frequency (min/apart): 4-5 Contraction Intensity: positive: Strong Uterine Resting Tone: positive: Soft - Monitoring Monitor Mode: positive: External ultrasound Heart Rate Baseline: 140 - Labor Progress Note Labor Progress Note/Additional Text: The patient cervix is now complete. She will begin with expulsatory efforts. A category 1 EFM is still noted.We will continue to follow her closely.
[2019-05-07] MEDS ORDERED: SODIUM CHLORIDE FLUSH 0.9% 10 ML SYRINGE IVP SCH (01:00)
--- NOTE | 2019-05-07 01:06 | DELIVERY NOTE ---
Delivery Note - Labor Labor: positive: Spontaneous, Augmented by ARM - Infant Delivery Method Delivery Method: positive: Spontaneous vaginal delivery - Presentation Presentation: positive: Vertex, KAYLEE - right occiput anterior - Nuchal Cord Nuchal Cord: positive: Present, Reduced - Amniotic Fluid Description Amniotic Fluid Description: positive: Clear - Episiotomy Type Episiotomy Type: positive: None - Laceration Laceration: positive: None - Delivery Outcome Delivery Outcome: positive: Livebirth - [place] : positive: Placed in direct skin contact with mother sex: positive: Male - Cord Cord: positive: 3 vessels - Placenta Placenta: positive: Intact, Spontaneous - Estimated Blood Loss Estimated Blood Loss (in cc): 150 - Post Delivery Events Post Delivery Events: positive: No post delivery events - Delivery Comments (Free Text/Narrative) Delivery Comments (Free Text/Narrative): The patient had come to [facility] complaining of increasing contractions all day. When she arrived her cervix was 6 cm dilated. She was alberto moderately every 6 to 10 minutes. An amniotomy was performed with return of a large amount of clear fluid. After that her contractions4 to 5 minutes closer. They were occurring now every 4 to 5 minutes.A category 1 EFM was noted throughout the entire labor and delivery process. She reached co mplete with respect to cervical dilatation according to the monitor at 0030 hours. Delivery summary: The patient reached complete with respect to cervical dilatation at 0030 hours. She began with expulsatory efforts.She soon began to have effective efforts. At approximately 004 8 hours she delivered a viable male over an intact perineum. Upon delivery of the head a circum-nuchal cord was noted which was easily reduced. This was loose. The rest of the was then delivered with gentle traction and and gentle expulsatory efforts.The delivered in KAYLEE presentation. Upon full delivery of the the was crying lustily. The was then immediately placed on the mother's chest. After 1 minute the cord was then doubly clamped. The father the baby then cut the cord. A sample of the cord blood was then obtained and sent for evaluation. The placenta was then delivered intact with 3 vessels at 00 53 hours. 30 units of Pitocin IV drip were given at that time. The patient passed a few clots and then the uterus firmed up quite nicely. Estimated blood loss was approximately 150 mL's. The cervix and vaginal vault were inspected and found to be intact. The perineum was intact. There is a few abrasions on the anterior labia minora bilaterally.Both the and the patient were allowed to remain in the LDRP both in satisfactory condition.
[2019-05-07] MEDS ORDERED: OXYTOCIN/DEXTROSE 5 % 30 UNIT/500 ML BAG IV PRN (01:13)
[2019-05-07] MEDS: ACETAMINOPHEN 325 MG TABLET PO PRN ×3 (01:29→12:24)
[2019-05-07] MEDS: IBUPROFEN 600 MG TABLET PO SCH ×4 (01:29→21:59)
[2019-05-07] MEDS ORDERED: LACTATED RINGERS 1,000 ML IV SCH (02:00)
--- NOTE | 2019-05-07 08:32 | PROVIDER PROGRESS NOTE ---
Subjective - Prog Note Date Prog Note Date: 05/07/19 Prog Note Time: 08:30 - Subjective Subjective: The patient is doing well this morning. She did notes her lochia is light. She is breast-feeding without difficulty. She is without any complaint. She is voiding well. Objective - Vital Signs/Intake & Output Vital Signs: Vital Signs x48h Temp Pulse Resp BP Pulse Ox 05/07/19 08:00 36.9 C 79 20 109/57 L 98 05/07/19 04:25 73 18 120/69 98 05/07/19 03:30 36.5 C 57 L 18 130/71 100 05/07/19 02:30 59 L 20 130/83 H 05/07/19 02:15 62 22 130/80 05/07/19 02:00 68 18 132/79 H 05/07/19 01:45 79 20 133/72 H 05/07/19 01:30 82 18 135/86 H 05/07/19 01:15 79 20 139/93 H 05/07/19 01:03 91 20 135/71 H 05/07/19 00:58 85 22 94/49 L 100 Intake & Output: Intake & Output 05/04/19 05/05/19 05/06/19 05/07/19 23:59 23:59 23:59 23:59 Intake Total 2050 Output Total 1250 Balance 800 - Objective Comments/Other: Abdomen: The abdomen is soft, pliable and nontender. Uterus is firm and nontender 2 to 3 fingerbreadths below the umbilicus. - Lab Results Fish Bones: 05/06/19 23:35 Other Labs: Lab Results x24hrs 05/06/19 Range/Units 23:35 WBC 11.7 H (4.8-10.8) x10^3/uL RBC 4.54 (4.20-5.40) 10^6/uL Hgb 9.8 L (12.0-16.0) g/dL Hct 32.8 L (37.0-47.0) % MCV 72.2 L (81.0-99.0) fL MCH 21.6 L (27.0-31.0) pg MCHC 29.9 L (32.0-36.0) g/dL RDW 15.5 H (12.0-15.0) % Plt Count 299 (130-450) 10^3/uL MPV 10.1 (7.9-10.8) fL Neut # (Auto) 6.7 H (1.5-6.6) 10^3/uL Lymph # (Auto) 3.0 (1.5-3.5) 10^3/uL Cotton # (Auto) 0.8 (0.0-1.0) 10^3/uL Eos # (Auto) 1.1 H (0.0-0.7) 10^3/uL Baso # (Auto) 0.1 (0.0-0.1) 10^3/uL Absolute Nucleated RBC 0.00 x10^3/uL Nucleated RBC % 0.0 /100WBC WBC Morphology NORMAL APPEARANCE (NORMAL) Platelet Estimate NORMAL (130-450,000) (NORMAL) Platelet Morphology NORMAL APPEARANCE (NORMAL) RBC Morph Micro Appear 1+ HYPOCHROMASIA (NORMAL) Assessment/Plan - Problem List (1) Impression: day #1: Stable Plan: We will continue with her acid care. As long as she continues to do well discharge is anticipated tomorrow.
--- NOTE | 2019-05-07 09:48 | PROVIDER PROGRESS NOTE ---
Subjective - Prog Note Date Prog Note Date: 05/07/19 Prog Note Time: 09:46 - Subjective Subjective: The patient reported to the nurse that she was having some cramping feeling in her left calf. She states she has actually had this throughout her . She states that she was low in potassium when she seems to get leg cramps.She is able to ambulate without difficulty.She denies any shortness of breath or chest pain. Objective - Vital Signs/Intake & Output Vital Signs: Vital Signs x48h Temp Pulse Resp BP Pulse Ox 05/07/19 08:00 36.9 C 79 20 109/57 L 98 05/07/19 04:25 73 18 120/69 98 05/07/19 03:30 36.5 C 57 L 18 130/71 100 05/07/19 02:30 59 L 20 130/83 H 05/07/19 02:15 62 22 130/80 05/07/19 02:00 68 18 132/79 H Intake & Output: Intake & Output 05/04/19 05/05/19 05/06/19 05/07/19 23:59 23:59 23:59 23:59 Intake Total 2050 Output Total 1250 Balance 800 - Lab Results Fish Bones: 05/06/19 23:35 Other Labs: Lab Results x24hrs 05/06/19 Range/Units 23:35 WBC 11.7 H (4.8-10.8) x10^3/uL RBC 4.54 (4.20-5.40) 10^6/uL Hgb 9.8 L (12.0-16.0) g/dL Hct 32.8 L (37.0-47.0) % MCV 72.2 L (81.0-99.0) fL MCH 21.6 L (27.0-31.0) pg MCHC 29.9 L (32.0-36.0) g/dL RDW 15.5 H (12.0-15.0) % Plt Count 299 (130-450) 10^3/uL MPV 10.1 (7.9-10.8) fL Neut # (Auto) 6.7 H (1.5-6.6) 10^3/uL Lymph # (Auto) 3.0 (1.5-3.5) 10^3/uL Morton # (Auto) 0.8 (0.0-1.0) 10^3/uL Eos # (Auto) 1.1 H (0.0-0.7) 10^3/uL Baso # (Auto) 0.1 (0.0-0.1) 10^3/uL Absolute Nucleated RBC 0.00 x10^3/uL Nucleated RBC % 0.0 /100WBC WBC Morphology NORMAL APPEARANCE (NORMAL) Platelet Estimate NORMAL (130-450,000) (NORMAL) Platelet Morphology NORMAL APPEARANCE (NORMAL) RBC Morph Micro Appear 1+ HYPOCHROMASIA (NORMAL) - Other Results/Comments Other Results/Comments: Extremities: The extremities are symmetrical bilaterally without edema.No tenderness was elicited to deep palpation bilaterally.No ropiness was appreciated in the calves bilaterally. Assessment/Plan - Problem List (1) Impression: 1 leg cramps. 2. Iron deficiency anemia of Plan: I do not feel that this at this time represents a blood clot. Especially since the patient states she has had pain like this throughout her . We will however watch this. If this worsens and does not clear then we will get ultrasound studies. As long as she improves however we will just follow this conservatively. We will also start up iron therapy on her today due to the anemia and also start her on a stool softener.
[2019-05-07] MEDS ORDERED: DOCUSATE SODIUM 100 MG CAPSULE PO SCH (10:00)
[2019-05-07] MEDS ORDERED: FERROUS SULFATE 325 MG TABLET PO SCH (10:00)
[2019-05-08] MEDS: IBUPROFEN 600 MG TABLET PO SCH (04:08)
--- NOTE | 2019-05-08 06:25 | PROVIDER PROGRESS NOTE ---
Subjective - Prog Note Date Prog Note Date: 05/08/19 Prog Note Time: 06:23 - Subjective Subjective: The patient continues to do very well. She is breast-feeding without difficulty. She is ambulating well and tolerating diet well. She is voiding without difficulty. Lochia is light. Objective - Vital Signs/Intake & Output Vital Signs: Vital Signs x48h Temp Pulse Resp BP Pulse Ox 05/08/19 00:45 36.5 C 69 18 117/59 L 99 Intake & Output: Intake & Output 05/05/19 05/06/19 05/07/19 05/08/19 23:59 23:59 23:59 23:59 Intake Total 2850 Output Total 1250 Balance 1600 - Lab Results Fish Bones: 05/06/19 23:35 - Other Results/Comments Other Results/Comments: Uterus: The uterus is firm and nontender 2 to 3 fingerbreadths below the umbilicus. Assessment/Plan - Problem List (1) Impression: 1.Delivery at 37 weeks 4 days gestation 2. Iron deficiency Anemia of Plan: We will allow the patient to be discharged home today.She will be discha rged home with both written and verbal instructions which included such things as: 1. She is to forego any lifting, tampons, douching or intercourse 2. She is to continue to increase her fluids and continue her vitamins 3. She does not drive a car for the next 2 weeks 4. She may use ibuprofen for cramping. She may also use Tylenol as she needs to for headaches 5. She is reporting temperatures greater than 100.4 or heavy vaginal bleeding. 6.As long as she does well we will see her in the office in 1 week for a an initial check and in 6 weeks for full check.
--- NOTE | 2019-05-08 06:53 | DISCHARGE SUMMARY ---
Physician: Garrett Armenta DO DATE OF ADMISSION: 05/06/2019 DATE OF DISCHARGE: 05/08/2019 ADMISSION DIAGNOSES 1. Intrauterine at 37 weeks 4 days' gestation. 2. Active labor. 3. Iron deficiency anemia of . DISCHARGE DIAGNOSES 1. Term delivery at 37 weeks 4 days' gestation. 2. Iron deficiency anemia of . PROCEDURES: Spontaneous assisted vaginal delivery. LABORATORIES: Admit CBC revealed WBC of 11.7, RBCs at 4.54, hemoglobin 9.8, hematocrit 32.8 with 299 platelets. HOSPITAL COURSE: Patient was admitted to [facility] in the evening of 05/06/2019. She had her care actually in [place] and had recently transferred her care to [facility]. In April, she had a possible kidney infection and had been hospitalized for that. The rest of her was unremarkable. Upon arrival, her cervix was found to be 6 cm dilated, but her membranes were intact. The patient denied any vaginal bleeding or fluid at home. She was alberto about every 6-10 minutes. She was then admitted. An amniotomy was performed with return of large amount of clear fluid. She then went into a labor pattern, which included contractions approximately every 4-5 minutes and were strong. She reached complete with respect to cervical dilatation at approximately 0030 hours, and went on to deliver a viable male over an intact perineum. He had Apgars of 9 and 9 at 1 and 5 minutes, respectively. One is to refer to the delivery note for full details. The patient recovered quite well. On her first day, she was ambulating well and tolerating diet well. Lochia was light to moderate at most. She was without difficulty. Her IV was discontinued on her second day. She continued to do quite well. Vital signs were stable. She is afebrile. Lochia was light. She was without difficulty. The uterus was firm and nontender, 2 fingerbreadths below the umbilicus. It was felt that the patient was stable and could be safely discharged to home. DISCHARGE INSTRUCTIONS The patient discharged to home with both written and verbal instructions including such things as 1. She is to forego any lifting, tampons, douching or intercourse. 2. She is to report any temperature greater than 100.4, or heavy vaginal bleeding or increasing cramping that is debilitating. 3. She may use ibuprofen for cramping and Tylenol as she needs to. 4. She is to increase her fluids and continue her vitamins. 5. She is to continue iron 325 mg 1 p.o. daily along with her vitamins. 6. She may use stool softeners as she needs to and MiraLax as she needs to for constipation. 7. She is not to drive a car for the next 2 weeks. 8. As long as she does well, we will see her in the office in 1 week for an initial check and in 6 weeks for full check. TD: 05/08/2019 06:39 SHELLEY
[2019-05-08 08:16] VITALS: BP 113/67
--- NOTE | 2019-05-08 13:31 | Labor Flowsheet ---
Labor Flowsheet Datetime Report Generated by CPN: 05/08/2019 13:31 Datetime: 05/07/2019 20:07 VITAL SIGNS NBP Sys/Saima/Mean (mmHg): 126 : 78 : 91 Pulse: 94 LaborFlag: Labor Datetime: 05/07/2019 08:00 SpO2 (%): 98 Datetime: 05/07/2019 00:53 Stage 2 Comments: Placenta spont expelled; pitocin bolus begun Datetime: 05/07/2019 00:48 STAGE 2 Pushing: Coached on Pushing; Urge to Push; Involuntary Pushing Pushing Position: Pushing with Contractions Pushing Progress: Descent with Pushing Datetime: 05/07/2019 00:45 UTERINE ACTIVITY Monitor Mode: External Frequency (min): 1.5-2 Quality: Strong Duration (sec): 45-60+ Pattern: Normal: <= 5 Contractions in 10 Minutes Resting Tone (Palpate): Relaxed ASSESSMENT A Monitor Mode: External US FHR Baseline Rate : 120 FHR Baseline Changes: No Baseline Change Variability: Moderate 6-25 bpm Accelerations: 15X15 Decelerations: Variable Actions for Decelerations: Provider Notified (Annotations: Pushing every other UC) Category: Category II Datetime: 05/07/2019 00:44 Stage of : Labor PATIENT CARE Provider Reviewed Strip: Yes COMMUNICATION Communication: Provider at Bedside Provider Notified (Name): Dr Kathi Notification Reason: Status Update Communication Comments: Dr Kathi here for delivery Datetime: 05/07/2019 00:35 TEACHING Instructional Method: Demo; Verbal; Patient Instructed; Family/Support Person Instructed; Verbalize d Understanding Labor/Induction: Pushing Methods Datetime: 05/07/2019 00:30 VAGINAL EXAM Exam by: Dr Kathi
== END 2019-05-08 12:31 | disposition home or self-care (01) | DRG 807 ==
LOC: WFO 20:46 → FBP 20:48 → WFO 22:45 → FBP 22:48
PROVIDERS: ADMIT Obstetrics & Gynecology; ATTEND Obstetrics & Gynecology
PROC: 10907ZC Drainage of Amniotic Fluid, Therapeutic from Products of Conception, Via Natural or Artificial Opening (ICD-10-PCS; 2019-05-06)
PROC: 10E0XZZ Delivery of Products of Conception, External Approach (ICD-10-PCS; principal; 2019-05-07)
DX: O99.02 Anemia complicating childbirth (principal); Z37.0 Single live birth; D50.9 Iron deficiency anemia, unspecified; O90.89 Other complications of the puerperium, not elsewhere classified; R25.2 Cramp and spasm; O69.9XX0 Labor and delivery complicated by cord complication, unspecified, not applicable or unspecified; Z3A.37 37 weeks gestation of pregnancy
CPT/HCPCS: 85025; 99213

== ENCOUNTER 2019-07-17 08:40 | Outpatient (CLI) | payer MEDICAID | END 2019-07-17 08:41 | disposition critical access hospital (66) | LOC: EMS 08:40 | PROVIDERS: ATTEND Surgery | DX: R11.2 Nausea with vomiting, unspecified (principal); R19.7 Diarrhea, unspecified; R42 Dizziness and giddiness | CPT/HCPCS: A0425; A0427; A0999 ==

== ENCOUNTER 2019-07-17 08:51 | Observation (INO) | payer MEDICAID ==
[2019-07-17] MEDS ORDERED: SODIUM CHLORIDE 0.9% 1,000 ML IV STA (08:58)
[2019-07-17] MEDS ORDERED: FAMOTIDINE 20 MG/2 ML VIAL IVP STA (09:01)
--- NOTE | 2019-07-17 09:01 | ED Physician Documentation ---
History of Present Illness - Stated complaint Stated Complaint: FLU SYMPTOMS - Additonal information Additional information: This is a 24-year-old female who presents with nausea vomiting diarrhea since 4 AM. Patient states she was feeling well yesterday, woke up this morning and had multiple episodes of nonbloody, nonbilious vomiting. She called EMS who brought her here. In route she received 4 mg of Zofran. She did have one episode of vomiting for EMS prior to the Zofran. She states that she feels dehydrated. She has had some mild epigastric discomfort after multiple episodes of vomiting, She denies other abdominal pain. She had a negative test at her d stanislavor's office yesterday at an appointment for starting new control. She denies any drug or alcohol use. No fever. No ingestions. 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 - Allergies Allergies/Adverse Reactions: Allergies Allergy/AdvReac Type Severity Reaction Status Date / Time No Known Drug Allergies Allergy Verified 01/14/19 09:09 - Social History Does the pt smoke?: No Smoking Status: Never smoker Does the pt drink ETOH?: Yes Does the pt have substance abuse?: No - Immunizations Immunizations are current?: Yes - POLST Patient has POLST: No PD ED PE NORMAL - Vitals Vital signs reviewed: Yes - General General: Alert and oriented X 3, No acute distress - HEENT HEENT: PERRL - Neck Neck: Supple, no meningeal sign - Cardiac Cardiac: RRR, No murmur - Respiratory Respiratory: Clear bilaterally - Abdomen Abdomen: Soft, Non distended, Other (Very mild epigastric tenderness, no right upper quadrant Or right lower quadrant tenderness. Negative Salazar sign.) - Derm Derm: Warm and dry - Extremities Extremities: No deformity - Neuro Neuro: Alert and oriented X 3 - Psych Psych: Normal mood, Normal affect Results - Vitals Vitals: Vital Signs - 24 hr 07/17/19 07/17/19 07/17/19 08:50 09:00 09:30 Temperature 36.3 C L Heart Rate 83 73 86 Respiratory 16 16 16 Rate Blood Pressure 128/85 H 127/95 H 122/82 H O2 Saturation 100 100 100 07/17/19 07/17/19 07/17/19 10:03 10:38 12:46 Temperature Heart Rate 88 84 95 Respiratory 16 16 16 Rate Blood Pressure 131/84 H 132/74 H 117/80 O2 Saturation 100 100 100 07/17/19 13:59 Temperature Heart Rate 84 Respiratory 16 Rate Blood Pressure 123/83 H O2 Saturation 100 Oxygen O2 Source Room air - Labs Labs: Laboratory Tests 07/17/19 07/17/19 07/17/19 09:10 09:10 09:10 WBC 8.4 RBC 5.30 Hgb 13.1 Hct 41.9 MCV 79.1 L MCH 24.7 L MCHC 31.3 L RDW 21.7 H Plt Count 345 MPV 9.1 Neut # (Auto) 6.8 H Lymph # (Auto) 1.2 L [place] # (Auto) 0.1 Eos # (Auto) 0.1 Baso # (Auto) 0.1 Absolute Nucleated RBC 0.00 Nucleated RBC % 0.0 Manual Slide Review Indicated Platelet Estimate NORMAL (130-450,000) Platelet Morphology NORMAL APPEARANCE RBC Morph Micro Appear 1+ POIKILOCYTOSIS VBG pH VBG pCO2 VBG pO2 VBG HCO3 VBG Total CO2 VBG O2 Saturation VBG Base Excess Sodium 137 Potassium 4.1 Chloride 104 Carbon Dioxide 12 L* Anion Gap 21.0 H BUN 17 Creatinine 0.7 Estimated GFR (MDRD) 101 Glucose 70 Lactic Acid Calcium 9.3 Total Bilirubin 1.6 H AST 36 ALT 27 Alkaline Phosphatase 83 Total Protein 8.1 Albumin 4.9 Globulin 3.2 Albumin/Globulin Ratio 1.5 Lipase 26 Serum HCG, Qual NEGATIVE Urine Color Urine Clarity Urine pH Ur Specific Velarde Urine Protein Urine Glucose (UA) Urine Ketones Urine Occult Blood Urine Nitrite Urine Bilirubin Urine Urobilinogen Ur Leukocyte Esterase Urine RBC Urine WBC Ur Squamous Epith Cells Urine Bacteria Ur Microscopic Review Urine Culture Comments Salicylates Acetaminophen Ethyl Alcohol 07/17/19 07/17/19 07/17/19 10:15 10:15 10:36 WBC RBC Hgb Hct MCV MCH MCHC RDW Plt Count MPV Neut # (Auto) Lymph # (Auto) [place] # (Auto) Eos # (Auto) Baso # (Auto) Absolute Nucleated RBC Nucleated RBC % Manual Slide Review Platelet Estimate Platelet Morphology RBC Morph Micro Appear VBG pH 7.181 L VBG pCO2 27.7 L VBG pO2 42.1 VBG HCO3 10.1 L VBG Total CO2 11.0 L VBG O2 Saturation 71.5 VBG Base Excess -16.7 L Sodium Potassium Chloride Carbon Dioxide Anion Gap BUN Creatinine Estimated GFR (MDRD) Glucose Lactic Acid 1.0 Calcium Total Bilirubin AST ALT Alkaline Phosphatase Total Protein Albumin Globulin Albumin/Globulin Ratio Lipase Serum HCG, Qual Urine Color YELLOW Urine Clarity SL. CLOUDY Urine pH 5.5 Ur Specific Velarde >=1.030 H Urine Protein TRACE Urine Glucose (UA) NEGATIVE Urine Ketones >=80 H Urine Occult Blood NEGATIVE Urine Nitrite NEGATIVE Urine Bilirubin NEGATIVE Urine Urobilinogen 0.2 (NORMAL) Ur Leukocyte Esterase NEGATIVE Urine RBC 0-5 Urine WBC 6-10 H Ur Squamous Epith Cells MANY Squamous H Urine Bacteria Few Ur Microscopic Review INDICATED Urine Culture Comments NOT INDICATED Salicylates Acetaminophen Ethyl Alcohol 07/17/19 07/17/19 15:08 15:08 WBC RBC Hgb Hct MCV MCH MCHC RDW Plt Count MPV Neut # (Auto) Lymph # (Auto) [place] # (Auto) Eos # (Auto) Baso # (Auto) Absolute Nucleated RBC Nucleated RBC % Manual Slide Review Platelet Estimate Platelet Morphology RBC Morph Micro Appear VBG pH 7.207 L VBG pCO2 24.9 L VBG pO2 70.9 H VBG HCO3 9.7 L VBG Total CO2 10.4 L VBG O2 Saturation 92.8 H VBG Base Excess -16.5 L Sodium 132 L Potassium 4.5 Chloride 103 Carbon Dioxide 10 L* Anion Gap 19.0 H BUN 8 Creatinine 0.6 Estimated GFR (MDRD) 121 Glucose 72 Lactic Acid Calcium 9.0 Total Bilirubin AST ALT Alkaline Phosphatase Total Protein Albumin Globulin Albumin/Globulin Ratio Lipase Serum HCG, Qual Urine Color Urine Clarity Urine pH Ur Specific Velarde Urine Protein Urine Glucose (UA) Urine Ketones Urine Occult Blood Urine Nitrite Urine Bilirubin Urine Urobilinogen Ur Leukocyte Esterase Urine RBC Urine WBC Ur Squamous Epith Cells Urine Bacteria Ur Microscopic Review Urine Culture Comments Salicylates < 6.0 Acetaminophen < 10 L Ethyl Alcohol < 5.0 - Rads (name of study) CT abd/pelvis W Radiology: Other (Appendix not visualized. No definite abdominal abnormality.) PD MEDICAL DECISION MAKING - ED course Complexity details: considered differential (Gastroenteritis, gastritis, peptic ulcer disease, appendicitis, cholecystitis, biliary colic, electrolyte abnormality) ED course: On initial examination patient is nontoxic-appearing, she remains nauseated so she is given 4 mg of Zofran, she continues to have nausea with this so she received an additional 10 mg of Reglan IV. She was also given 2 L of normal ridge ine bolus. Her labs reveal a metabolic acidosis with a raised anion gap, and a pH is just under 7.2. Her abdomen is benign but because she is having continued vomiting despite multiple rounds of antiemetics and does have some epigastric and suprapubic mild tenderness to my repeat exam, CT scan is obtained and is unrevealing. UA shows several WBC, but is a dirty catch, overall not convincing for infection. Repeat labs show a bicarbonate 10, and a stable pH is 7.2. It is unclear what the cause of her anion gap acidosis is, she denies ingestions, alcohol use, and does not have a history of diabetes or elevated glucose. Given her acidosis/acidemia as well as her intractable vomiting she was admitted to the hospital for further evaluation and workup, please refer to the hospitalist notes for further course. Departure - Departure Disposition: ED Place in Observation Clinical Impression: Vomiting Qualifiers: Vomiting type: unspecified Vomiting Intractability: intractable Nausea presence: with nausea Qualified Code(s): R11.2 - Nausea with vomiting, unspecified Discharge Date/Time: 07/17/19 16:32
[2019-07-17 09:24] LABS: BASOPHILS # (AUTO) 0.1 10^3/uL (0.0-0.1); BASOPHILS % (AUTO) 0.7 %; EOSINOPHILS # (AUTO) 0.1 10^3/uL (0.0-0.7); EOSINOPHILS % (AUTO) 1.7 %; HGB - HEMOGLOBIN 13.1 g/dL (12.0-16.0); LYMPHOCYTES # (AUTO) 1.2 10^3/uL (1.5-3.5); LYMPHOCYTES % (AUTO) 14.8 %; MEAN CORPUSCULAR HEMOGLOBIN 24.7 pg (27.0-31.0); MEAN CORPUSCULAR HGB CONC 31.3 g/dL (32.0-36.0); MEAN CORPUSCULAR VOLUME 79.1 fL (81.0-99.0); MEAN PLATELET VOLUME 9.1 fL (7.9-10.8); MONOCYTES # (AUTO) 0.1 10^3/uL (0.0-1.0); MONOCYTES % (AUTO) 1.7 %; NEUTROPHILS # (AUTO) 6.8 10^3/uL (1.5-6.6); NEUTROPHILS % (AUTO) 80.7 %; PLT - PLATELET COUNT 345 10^3/uL (130-450); RED CELL DISTRIBUTION WIDTH 21.7 % (12.0-15.0); WHITE BLOOD COUNT 8.4 x10^3/uL (4.8-10.8)
[2019-07-17 09:43] LABS: ALBUMIN 4.9 g/dL (3.2-5.5); ALBUMIN/GLOBULIN RATIO 1.5 (1.0-2.2); BILIRUBIN,TOTAL 1.6 mg/dL (0.2-1.0); CALCIUM 9.3 mg/dL (8.5-10.3); CREATININE 0.7 mg/dL (0.4-1.0); TOTAL PROTEIN 8.1 g/dL (6.7-8.2)
[2019-07-17 09:45] LABS: PLATELET ESTIMATE, MANUAL NORMAL (130-450,000) (NORMAL); PLATELET MORPHOLOGY NORMAL APPEARANCE (NORMAL)
[2019-07-17 09:47] LABS: HCG,QUALITATIVE BLOOD NEGATIVE
[2019-07-17] MEDS ORDERED: ONDANSETRON 4 MG/2 ML VIAL IVP STA ×2 (10:12→11:49)
[2019-07-17 10:26] LABS: VBG BASE EXCESS -16.7 mmol/L (-2 - +2); VBG PCO2 27.7 mmHg (41-51); VBG PH 7.181 (7.31-7.41); VBG PO2 42.1 mmHg (25-47)
[2019-07-17 10:49] LABS: BILIRUBIN,URINE NEGATIVE (NEGATIVE); GLUCOSE, URINE (UA) NEGATIVE (NEGATIVE); KETONES,URINE (UA) >=80 mg/dL (NEGATIVE); LEUKOCYTE ESTERASE, URINE NEGATIVE (NEGATIVE); NITRITE,URINE NEGATIVE (NEGATIVE); OCCULT BLOOD,URINE NEGATIVE (NEGATIVE); PH,URINE 5.5 PH (5.0-7.5); PROTEIN,URINE TRACE mg/dL (NEGATIVE); UROBILINOGEN,URINE 0.2 (NORMAL) E.U./dL (NORMAL)
[2019-07-17 10:51] LABS: CLARITY,URINE SL. CLOUDY (CLEAR)
[2019-07-17 11:00] LABS: BACTERIA,URINE Few /HPF (None Seen); RBC,URINE 0-5 /HPF (0-5); SQUAMOUS EPITHELIAL CELL,UR MANY Squamous (<= Few)
[2019-07-17] MEDS ORDERED: LACTATED RINGERS 1,000 ML IV STA (11:50)
[2019-07-17] MEDS ORDERED: METOCLOPRAMIDE 10 MG TABLET PO STA (13:49)
[2019-07-17] MEDS ORDERED: IOVERSOL 320 100 ML VIAL IVP ONE ×2 (14:05→14:32)
--- NOTE | 2019-07-17 14:44 | CT Report ---
Reason: Persistent vomiting, abdominal pain Procedure Date: 07/17/2019 Accession Number: [id number] / [id number] Procedure: CT - Abdomen/Pelvis W CPT Code: FULL RESULT: EXAM: CT ABDOMEN AND PELVIS EXAM DATE: 07/17/2019 02:09 PM. CLINICAL HISTORY: Persistent vomiting, abdominal pain. COMPARISONS: ABDOMEN/PELVIS W/ 04/06/2016 12:43 PM. TECHNIQUE: Routine helical CT imaging was performed through the abdomen and pelvis. IV contrast: OPTI 320 90ML. Enteric contrast: No. Reconstructions: Coronal and sagittal. In accordance with CT protocol optimization, one or more of the following dose reduction techniques were utilized for this exam: automated exposure control, adjustment of mA and/or KV based on patient size, or use of iterative reconstructive technique. FINDINGS: Lung Bases: Unremarkable. Liver: Normal. No masses. Gallbladder/Bile Ducts: Unremarkable. Spleen: Normal. Pancreas: Normal. Adrenal Glands: Normal. Kidneys: Normal. No masses or hydronephrosis. Peritoneal Cavity/Bowel: Normal. No free fluid, free air or adenopathy. No masses or acute inflammatory process. Appendix not definitively seen. Pelvic Organs: Normal. The bladder and visualized pelvic organs are within normal limits. Vasculature: No aneurysms or other significant abnormality. Bones: No significant abnormality. Other: None. IMPRESSION: Appendix not definitively seen, however no acute abnormality. RADIA
[2019-07-17 15:15] LABS: VBG PCO2 24.9 mmHg (41-51); VBG PH 7.207 (7.31-7.41); VBG PO2 70.9 mmHg (25-47); VBG TOTAL CO2 10.4 mmol/L (24-29)
[2019-07-17 15:16] LABS: VBG BASE EXCESS -16.5 mmol/L (-2 - +2)
[2019-07-17 15:32] LABS: ACETAMINOPHEN < 10 ug/mL (10-30); BUN - BLOOD UREA NITROGEN 8 mg/dL (6-20); CHLORIDE 103 mmol/L (101-111); CREATININE 0.6 mg/dL (0.4-1.0); GFR - MDRD 121 (>89); GLUCOSE 72 mg/dL (70-100); SALICYLATE < 6.0 mg/dL; SODIUM 132 mmol/L (135-145)
[2019-07-17 15:33] LABS: CARBON DIOXIDE - CO2 10 mmol/L (21-32)
[2019-07-17] MEDS ORDERED: PROCHLORPERAZINE 10 MG/2 ML VIAL IVP PRN (15:47)
[2019-07-17] MEDS ORDERED: SODIUM CHLORIDE FLUSH 0.9% 10 ML SYRINGE IVP PRN (15:47)
[2019-07-17] MEDS ORDERED: ONDANSETRON 4 MG/2 ML VIAL IVP PRN (15:47)
[2019-07-17] MEDS ORDERED: LACTATED RINGERS 1,000 ML IV ONE (15:50)
[2019-07-17] MEDS: SODIUM CHLORIDE FLUSH 0.9% 10 ML SYRINGE IVP SCH (17:16)
[2019-07-17] MEDS: LACTATED RINGERS 1,000 ML IV SCH (17:16)
--- NOTE | 2019-07-17 18:04 | HISTORY & PHYSICAL EXAMINATION ---
Chief Complaint - Chief Complaint Chief Complaint: Nausea and Vomiting History of Present Illness - Admitted From Admitted From:: Home - History Obtained From Records Reviewed: Yes History obtained from: Patient, ER Physician - History of Present Illness HPI Comment/Other: This is a 24 year old female with no significant past medical history who pre sents from home after waking up this morning at 4am feeling nauseous and having multiple episodes of nonbloody emesis. She reports that she went to sleep last night feeling well and in her usual state of health. This morning she felt very lethargic and weak. She reports almost 20 episodes of emesis today. She has been unable to tolerate oral intake. She reports that she has been around people who were sick last week but she has been feeling fine. She had the same food for dinner last night as her boyfriend and son did and they are both not sick. She reports no alcohol use, drug use. Denies any possibility of consuming beverages of unknown content such as anti-freeze. She has been eating well these last few days. She does have associated abdominal pain and did have three episodes of diarrhea today. Reports no fevers, chills, dysuria, urgency. She recently gave two months ago and is currently breast feeding. In the ER, she was found to have significant electrolyte abnormalities as evident by her low bicarbonate, elevated anion gap and low pH. She was given Zofran and Reglan but she continued to have episodes of emesis and was unable to keep down liquids. She had a CT of her abdomen/pelvis completed which was unremarkable. Given here electrolyte derangements and intractable n ausea/vomiting, Medicine was consulted for admission. History - Past Medical History Cardiovascular: reports: None Respiratory: reports: None Endocrine/Autoimmune: reports: None GI: reports: None : reports: None HEENT: reports: None Psych: reports: Depression Musculoskeletal: reports: Chronic back pain Derm: reports: None MRSA Hx?: No - Family & Social History Family History Comment/Other: She reports a family history of kidney stones and infections. Living arrangement: At home Living Situation: With family Social History Notes: She lives at home with her boyfriend, son, and stu barker. 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 Denies alcohol, smoking, and drug use. Reports prior history of marijuana use but not recently. - Substance History Use: Uses substance without health or social issues: NONE - POLST Patient has POLST: No Meds/Allgy - Allergies Allergies/Adverse Reactions: Allergies Allergy/AdvReac Type Severity Reaction Status Date / Time No Known Drug Allergies Allergy Verified 01/14/19 09:09 Review of Systems - Constitutional Constitutional: reports: Fatigue, Malaise, Weakness. denies: Fever, Chills, Poor appetite - Cardiovascular Cariovascular: reports: Lightheadedness. denies: Palpitations, Edema, Syncope, Exertional dyspnea, Decr. exercise tolerance - Respiratory Respiratory: denies: SOB at rest, SOB with exertion - Gastrointestinal Gastrointestinal: reports: Abdominal pain, Diarrhea, Nausea, Vomiting, Reflux/heartburn. denies: Constipation, Black stools, Bloody stools - Genitourinary Genitourinary: denies: Dysuria, Frequency, Urgency - Musculoskeletal Musculoskeletal: denies: Muscle pain, Muscle weakness - Integumentary Integumentary: denies: Rash - Neurological Neurological: reports: General weakness, Dizziness. denies: Focal weakness, Numbness - All Other Systems All Other Systems: reports: Reviewed and negative Prior Level of Functionality: Independent with ADL's. Exam - Vital Signs Reviewed Vital Signs: Yes Vital Signs: Vital Signs x48h Temp Pulse Pulse Resp BP BP Pulse Ox 07/17/19 16:43 37.1 C 81 18 143/88 H 100 07/17/19 16:22 69 14 122/77 100 07/17/19 13:59 84 16 123/83 H 100 07/17/19 12:46 95 16 117/80 100 07/17/19 10:38 84 16 132/74 H 100 07/17/19 10:03 88 16 131/84 H 100 - Physical Exam General Appearance: positive: Alert, Mild distress Eyes Bilateral: positive: Normal inspection ENT: positive: Dry mucous membranes Neck: positive: Nml inspection Respiratory: positive: No respiratory distress. negative: Wheezes, Rales, Rhonchi Cardiovascular: positive: Regular rate & rhythm, No murmur. negative: Tachycardia, Bradycardia, Systolic murmur, Diastolic murmur Abdomen: positive: No distention, Tenderness (Diffuse tenderness throughout.). negative: Non-tender, Guarding, Rebound Skin: positive: Color nml, No rash, Warm, Dry Extremities: positive: No pedal edema Neurologic/Psychiatric: positive: Oriented x3, Motor nml. negative: Disoriented to person, Disoriented to place, Disoriented to time, Weakness Conclusion/Plan - Problem List (1) High anion gap metabolic acidosis Conclusion/Plan: She has a significant anion gap metabolic acidosis with a bicarbonate of 10, anion gap of 19, and pH of 7.2. Etiology is not clear at this time. Glucose is within normal limits, lactic acid is normal. Concern is for possible toxic ingestion. Salicylates, acetaminophen, and EtOH are negative. UDS is pending. At this time, will continue to hydrate her with LR. Well check serum osm and calculate if there is an osm gap which may suggest ingestion. Recheck labs this evening. (2) Intractable nausea and vomiting Conclusion/Plan: This may be secondary to a viral gastroenteritis. She was unable to tolerate ora l intake despite multiple anti-emetics. CT of the abdomen/pelvis was unremarkable. Will continue IV hydration. Zofran and Reglan PRN given she is breast feeding. Will trial clear liquid diet as tolerated. (3) Hyponatremia Conclusion/Plan: Suspect this is hypovolemic hyponatremia. Sodium is 132 which decreased from 137 initially. Should improve with IV fluids. Recheck BMP this evening. - Lab Results Lab results reviewed: Yes Fish Bones: 07/17/19 09:10 07/17/19 15:08 - Diagnostic Imaging Results Diagnostic Imaging Results: positive: Final report reviewed Core Measures - Anticipated LOS I expect patient to be DC'd or transferred within 96 hours.: Yes - Issues Hospital Issues and Management Plan: Intractable nausea/vomiting and elevated anion gap metabolic acidosis requiring IV hydration and anti-emetics. - DVT/VTE - Prophylaxis VTE/DVT Device ordered at admit?: Yes VTE/DVT Prophylaxis med ordered at admit?: No Not Ordered - Medical Reason: Not indicated
[2019-07-17] MEDS ORDERED: METOCLOPRAMIDE 10 MG/2 ML VIAL IVP PRN (18:57)
[2019-07-17] MEDS ORDERED: diphenhydrAMINE 25 MG CAPSULE PO PRN (19:19)
[2019-07-17] MEDS ORDERED: ACETAMINOPHEN 325 MG TABLET PO PRN (19:53)
[2019-07-17 21:06] LABS: MUDS CUTOFF CONCENTRATIONS CUTOFF CONC BELOW:
[2019-07-17 21:21] LABS: AMPHETAMINE SCREEN,URINE NEGATIVE (NEGATIVE); BENZODIAZEPINES SCREEN, URINE NEGATIVE (NEGATIVE); COCAINE SCREEN URINE NEGATIVE (NEGATIVE); METHADONE SCREEN, URINE NEGATIVE (NEGATIVE); METHAMPHETAMINES SCREEN, URINE NEGATIVE (NEGATIVE); OPIATE SCREEN, URINE NEGATIVE (NEGATIVE); OXYCODONE SCREEN, URINE NEGATIVE (NEGATIVE); PROPOXYPHENE SCREEN, URINE NEGATIVE (NEGATIVE); TRICYCLIC ANTIDEPRESSANT,URINE NEGATIVE (NEGATIVE)
[2019-07-17 21:26] LABS: CALCIUM 9.1 mg/dL (8.5-10.3); CREATININE 0.6 mg/dL (0.4-1.0); MAGNESIUM 1.6 mg/dL (1.7-2.8); PHOSPHORUS 3.9 mg/dL (2.5-4.6)
[2019-07-18] MEDS: SODIUM CHLORIDE FLUSH 0.9% 10 ML SYRINGE IVP SCH ×2 (01:08→06:48)
[2019-07-18] MEDS: LACTATED RINGERS 1,000 ML IV SCH (03:10)
[2019-07-18 05:51] LABS: CREATININE 0.7 mg/dL (0.4-1.0); MAGNESIUM 1.8 mg/dL (1.7-2.8); PHOSPHORUS 3.9 mg/dL (2.5-4.6)
[2019-07-18] MEDS ORDERED: PANTOPRAZOLE 40 MG VIAL IVP SCH (07:00)
[2019-07-18] MEDS ORDERED: DEXTROSE 5%-0.45% NACL 1,000 ML IV SCH (08:00)
[2019-07-18 12:06] LABS: CALCIUM 8.9 mg/dL (8.5-10.3); CREATININE 0.7 mg/dL (0.4-1.0)
--- NOTE | 2019-07-18 12:20 | Discharge Plan ---
Discharge Plan Problem Reviewed?: Yes Disposition: Home, Self Care Condition: Good Prescriptions: Ondansetron Odt [Zofran Odt] 4 mg PO Q6H PRN #10 tablet PRN Reason: Nausea / Vomiting Diet: Regular Activity Restrictions: No Restrictions Shower Restrictions: No Driving Restrictions: No Instruction Topics: Ondansetron tablets, Dehydration, ED Nausea Vomiting Health Concerns: You were admitted to the hospital because of nausea and vomiting. There was also an increased amount of acid in your body likely because of your vomiting and you being unable to eat. Your labs did not reveal a cause of the elevated acid in your body. Your numbers returned to normal with hydration and you are now able to tolerate a diet. Plan of Treatment: You were prescribed Zofran which you may take as needed for nausea. Care Goals: It is recommended that you follow up with a primary care physician within one week. Assessment: The patient expressed understand of the treatment. No Smoking: If you smoke, Please STOP! Call for help.
[2019-07-18 12:56] VITALS: BP 128/68
--- NOTE | 2019-07-18 15:47 | DISCHARGE SUMMARY ---
"Discharge Summary Admit Date: 07/17/19 Discharge Date: 07/18/19 Discharging Provider: Dr. Isaías Rangel Primary Care Provider: No PCP Code Status: Attempt Resuscitation Condition at Discharge: Good Discharge Disposition: 01 Home, Self Care - DIAGNOSES Admission Diagnoses: High anion gap metabolic acidosis Intractable nausea and vomiting Hyponatremia Discharge Diagnoses with Status of Each Condition: High anion gap metabolic acidosis - resolved. Likely starvation ketoacidosis. Workup was unremarkable. Resolved with IV hydration. Intractable nausea and vomiting - resolved. Tolerating regular diet. Hyponatremia - resolved. Improved with IV fluids. - HPI History of Present Illness: This is a 24 year old female with no significant past medical history who presents from home after waking up this morning at 4am feeling nauseous and having multiple episodes of nonbloody emesis. She reports that she went to sleep last night feeling well and in her usual state of health. This morning she felt very lethargic and weak. She reports almost 20 episodes of emesis today. She has been unable to tolerate oral intake. She reports that she has been around people who were sick last week but she has been feeling fine. She had the same food for dinner last night as her boyfriend and son did and they are both not sick. She reports no alcohol use, drug use. Denies any possibility of consuming beverages of unknown content such as anti-freeze. She has been eating well these last few days. She does have associated abdominal pain and did have three episodes of diarrhea today. Reports no fevers, chills, dysuria, urgency. She recently gave two months ago and is currently breast feeding. In the ER, she was found to have significant electrolyte abnormalities as evident by her low bicarbonate, elevated anion gap and low pH. She was given Zofran and Reglan but she continued to have episodes of emesis and was unable to keep down liquids. She had a CT of her abdomen/pelvis completed which was unremarkable. Given here electrolyte derangements and intractable nausea/vomiting, Medicine was consulted for admission. - CONSULTS | PROCEDURES Procedures: CT of the abdomen/pelvis - HOSPITAL COURSE Hospital Course: She was admitted and hydrated with LR. Her nausea and vomiting resolved with zofran and reglan. Serum ketones were positive and she was started on D5/0.5NS as there was concern for starvation ketoacidosis. Her diet was advanced and she tolerated it well. Her repeat labs were significantly improved and she was discharged home. - ALLERGIES Allergies/Adverse Reactions: Allergies Allergy/AdvReac Type Severity Reaction Status Date / Time No Known Drug Allergies Allergy Verified 01/14/19 09:09 - MEDICATIONS Home Medications: Ambulatory Orders Medication Instructions Recorded Confirmed Ondansetron Odt [Zofran Odt] 4 mg PO Q6H PRN #10 tablet 07/18/19 - PHYSICAL EXAM AT DISCHARGE General Appearance: positive: No acute distress, Alert Eyes Bilateral: positive: Conjunctivae nml Neck: positive: Nml inspection Respiratory: positive: No respiratory distress. negative: Wheezes, Rales, Rhonchi Cardiovascular: positive: No murmur. negative: Tachycardia, Bradycardia, Systolic murmur, Diastolic murmur Abdomen: positive: Non-tender, No distention. negative: Guarding, Rebound Skin: positive: No rash, Warm, Dry Extremities: positive: Full ROM Neurologic/Psychiatric: positive: Oriented x3, Motor nml. negative: Disoriented to person, Disoriented to place, Disoriented to time, Weakness - LABS Result Diagrams: 07/17/19 09:10 07/18/19 11:46 - DIAGNOSTIC IMAGING Diagnostic Imaging Results: Final report reviewed - FOLLOW UP Follow Up: She was asked to make an appointment with a PCP for follow up. - TIME SPENT Time Spent in Discharge (Minutes): 30"
== END 2019-07-18 14:02 | disposition home or self-care (01) ==
LOC: EDUNIT# → ED 08:51 → MS2 15:47
PROVIDERS: ADMIT Internal Medicine; ATTEND Internal Medicine
DX: E87.2 Acidosis (principal); R11.2 Nausea with vomiting, unspecified; E87.1 Hypo-osmolality and hyponatremia; F32.9 Major depressive disorder, single episode, unspecified; G89.29 Other chronic pain; M54.9 Dorsalgia, unspecified
CPT/HCPCS: 36415; 74177; 80048; 80053; 80306; 80307; 80320; 80329; 81001; 82009; 82803; 83605; 83690; 83735; 83930; 84100; 84443; 84703; 85025; 96361; 96374; 96375; 96376; 99284; 99285; A9270; G0378; J2765; J7120; Q9967; 81003; 87086

== ENCOUNTER 2019-07-20 11:22 | Emergency (ER) | payer MEDICAID ==
[2019-07-20 11:43] LABS: BASOPHILS # (AUTO) 0.1 10^3/uL (0.0-0.1); BASOPHILS % (AUTO) 0.6 %; EOSINOPHILS % (AUTO) 0.1 %; HGB - HEMOGLOBIN 12.8 g/dL (12.0-16.0); LYMPHOCYTES # (AUTO) 2.2 10^3/uL (1.5-3.5); LYMPHOCYTES % (AUTO) 21.8 %; MEAN CORPUSCULAR HEMOGLOBIN 24.5 pg (27.0-31.0); MEAN CORPUSCULAR HGB CONC 32.4 g/dL (32.0-36.0); MEAN CORPUSCULAR VOLUME 75.5 fL (81.0-99.0); MEAN PLATELET VOLUME 9.2 fL (7.9-10.8); MONOCYTES # (AUTO) 0.7 10^3/uL (0.0-1.0); MONOCYTES % (AUTO) 6.4 %; NEUTROPHILS # (AUTO) 7.3 10^3/uL (1.5-6.6); NEUTROPHILS % (AUTO) 70.8 %; PLT - PLATELET COUNT 327 10^3/uL (130-450); RED BLOOD COUNT 5.23 10^6/uL (4.20-5.40); RED CELL DISTRIBUTION WIDTH 21.3 % (12.0-15.0); WHITE BLOOD COUNT 10.2 x10^3/uL (4.8-10.8)
[2019-07-20 11:56] LABS: ALBUMIN 4.8 g/dL (3.2-5.5); ALBUMIN/GLOBULIN RATIO 1.8 (1.0-2.2); BILIRUBIN,TOTAL 1.1 mg/dL (0.2-1.0); CALCIUM 9.3 mg/dL (8.5-10.3); CREATININE 0.6 mg/dL (0.4-1.0); TOTAL PROTEIN 7.4 g/dL (6.7-8.2)
[2019-07-20 12:06] LABS: PLATELET ESTIMATE, MANUAL NORMAL (130-450,000) (NORMAL); PLATELET MORPHOLOGY NORMAL APPEARANCE (NORMAL)
[2019-07-20] MEDS ORDERED: ELECTROLYTE-A SOLUTION 1,000 ML IV ONE (12:16)
[2019-07-20 12:34] LABS: ACETAMINOPHEN < 10 ug/mL (10-30); SALICYLATE < 6.0 mg/dL
--- NOTE | 2019-07-20 13:09 | ED Physician Documentation ---
History of Present Illness - Stated complaint Stated Complaint: ABD PX/N/V - Chief complaint Chief Complaint: Abd Pain - History obtained from History obtained from: Patient - History of Present Illness Timing: Today Pain level max: 8 Pain level now: 6 Improved by: reglan helped yesterday Worsened by: eating, drinking - Additonal information Additional information: epigastric abdominal pain today. States vomiting today. Recently admitted for same. Seen at [facility] yesterday for same. no fevers. no urinary symptoms. States uses marijuana approx 2x per month. 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 : None HEENT: None Psych: Depression Musculoskeletal: Chronic back pain Derm: None - Past Surgical History Past Surgical History: Yes /LITIGATION CLAIM REPRESENTATIVE: Other - Present Medications Home Medications: Ambulatory Orders Medication Instructions Recorded Confirmed Ondansetron Odt [Zofran Odt] 4 mg PO Q6H PRN #10 tablet 07/18/19 - Allergies Allergies/Adverse Reactions: Allergies Allergy/AdvReac Type Severity Reaction Status Date / Time No Known Drug Allergies Allergy Verified 01/14/19 09:09 - Social History Does the pt smoke?: No Smoking Status: Never smoker Does the pt drink ETOH?: Yes Does the pt have substance abuse?: No - Immunizations Immunizations are current?: Yes - POLST Patient has POLST: No PD ED PE NORMAL - Vitals Vital signs reviewed: Yes - General General: Alert and oriented X 3, No acute distress, Other (vomiting) - HEENT HEENT: PERRL, Moist mucous membranes - Neck Neck: Supple, no meningeal sign - Cardiac Cardiac: RRR, Strong equal pulses - Respiratory Respiratory: No respiratory distress, Clear bilaterally - Abdomen Abdomen: Soft, Non distended, Other (Right upper quadrant. Negative Salazar sign) - Derm Derm: Warm and dry - Extremities Extremities: No edema - Neuro Neuro: Alert and oriented X 3 - Psych Psych: Normal mood, Normal affect Results - Vitals Vitals: Vital Signs - 24 hr 07/20/19 07/20/19 07/20/19 11:25 15:25 16:32 Temperature 36.9 C 98.2 C H Heart Rate 74 72 99 Respiratory 16 18 16 Rate Blood Pressure 115/73 133/88 H 117/76 O2 Saturation 100 96 100 Oxygen O2 Source Room air - Labs Labs: Laboratory Tests 07/20/19 07/20/19 07/20/19 11:35 11:35 11:35 WBC 10.2 RBC 5.23 Hgb 12.8 Hct 39.5 MCV 75.5 L MCH 24.5 L MCHC 32.4 RDW 21.3 H Plt Count 327 MPV 9.2 Neut # (Auto) 7.3 H Lymph # (Auto) 2.2 Will # (Auto) 0.7 Eos # (Auto) 0.0 Baso # (Auto) 0.1 Absolute Nucleated RBC 0.00 Nucleated RBC % 0.0 Manual Slide Review Indicated Platelet Estimate NORMAL (130-450,000) Platelet Morphology NORMAL APPEARANCE RBC Morph Micro Appear 1+ ANISOCYTOSIS Sodium 139 Potassium 3.0 L Chloride 100 L Carbon Dioxide 27 Anion Gap 12.0 BUN 10 Creatinine 0.6 Estimated GFR (MDRD) 121 Glucose 105 H Calcium 9.3 Total Bilirubin 1.1 H AST 28 ALT 28 Alkaline Phosphatase 68 Total Protein 7.4 Albumin 4.8 Globulin 2.6 Albumin/Globulin Ratio 1.8 Lipase 78 H TSH 1.81 Urine Color Urine Clarity Urine pH Ur Specific [place] Urine Protein Urine Glucose (UA) Urine Ketones Urine Occult Blood Urine Nitrite Urine Bilirubin Urine Urobilinogen Ur Leukocyte Esterase Urine RBC Urine WBC Ur Squamous Epith Cells Urine Bacteria Urine Mucus Ur Microscopic Review Urine Culture Comments Urine HCG, Qual Salicylates Urine Opiates Screen Ur Oxycodone Screen Urine Methadone Screen Ur Propoxyphene Screen Acetaminophen Ur Barbiturates Screen Ur Tricyclics Screen Ur Phencyclidine Scrn Ur Amphetamine Screen U Methamphetamines Scrn U Benzodiazepines Scrn Urine Cocaine Screen U Cannabinoids Screen Ethyl Alcohol 07/20/19 07/20/19 07/20/19 11:35 14:40 14:40 WBC RBC Hgb Hct MCV MCH MCHC RDW Plt Count MPV Neut # (Auto) Lymph # (Auto) [place] # (Auto) Eos # (Auto) Baso # (Auto) Absolute Nucleated RBC Nucleated RBC % Manual Slide Review Platelet Estimate Platelet Morphology RBC Morph Micro Appear Sodium Potassium Chloride Carbon Dioxide Anion Gap BUN Creatinine Estimated GFR (MDRD) Glucose Calcium Total Bilirubin AST ALT Alkaline Phosphatase Total Protein Albumin Globulin Albumin/Globulin Ratio Lipase TSH Urine Color YELLOW Urine Clarity CLOUDY Urine pH 8.5 H Ur Specific [place] 1.020 1.020 Urine Protein TRACE Urine Glucose (UA) NEGATIVE Urine Ketones >=80 H Urine Occult Blood LARGE H Urine Nitrite NEGATIVE Urine Bilirubin NEGATIVE Urine Urobilinogen 0.2 (NORMAL) Ur Leukocyte Esterase NEGATIVE Urine RBC 6-10 H Urine WBC 0-3 Ur Squamous Epith Cells MOD Squamous H Urine Bacteria Few Urine Mucus Few Strands Ur Microscopic Review INDICATED Urine Culture Comments NOT INDICATED Urine HCG, Qual NEGATIVE Salicylates < 6.0 Urine Opiates Screen NEGATIVE Ur Oxycodone Screen NEGATIVE Urine Methadone Screen NEGATIVE Ur Propoxyphene Screen NEGATIVE Acetaminophen < 10 L Ur Barbiturates Screen NEGATIVE Ur Tricyclics Screen NEGATIVE Ur Phencyclidine Scrn NEGATIVE Ur Amphetamine Screen NEGATIVE U Methamphetamines Scrn NEGATIVE U Benzodiazepines Scrn NEGATIVE Urine Cocaine Screen NEGATIVE U Cannabinoids Screen POSITIVE H Ethyl Alcohol < 5.0 - Rads (name of study) Right upper quadrant ultrasound Radiology: Prelim report reviewed, EMP read contemporaneously, See rad report (Mildly heterogeneous hepatic echotexture could reflect possible mild hepatitis. No focal liver lesions. 2. No cholelithiasis or evidence for acute cholecystitis. 3. No biliary dilation. ) PD MEDICAL DECISION MAKING - ED course Complexity details: reviewed old records, reviewed results, re-evaluated patient, considered differential, d/w patient ED course: Patient presents to the emergency department vomiting. No acute laboratory issues. No acute ultrasound findings. Did not have much relief with Reglan. Symptoms did resolve with Haldol. Possible cannabinoid induced hyperemesis? Patient counseled to stop using marijuana and to try to avoid being around a lot of smoke. She has not going to breast-feed today. She is well-appearing, nontoxic. Afebrile. Abdomen is soft, nontender nondistended on serial exam. Patient counseled regarding signs and symptoms for which I believe and urgent re-evaluation would be necessary. Patient with good understanding of and agreement to plan and is comfortable going home at this time This document was made in part using voice recognition software. While efforts are made to proofread this document, sound alike and grammatical errors may occur. Departure - Departure Disposition: 01 Home, Self Care Clinical Impression: Vomiting Qualifiers: Vomiting type: unspecified Vomiting Intractability: non-intractable Nausea presence: with nausea Qualified Code(s): R11.2 - Nausea with vomiting, unspecified Condition: Good Instructions: ED Nausea Vomiting Follow-Up: your,doctor in 1 week [Other] Comments: The cause of your symptoms is unclear today, but may be related to marijuana. You should refrain from using marijuana or being around marijuana smoke. Your laboratory studies and ultrasound did not show any acute abnormalities today. Return if you worsen. Drink plenty fluids and rest at home. Do not breast-feed today. Discharge Date/Time: 07/20/19 16:34
[2019-07-20] MEDS ORDERED: METOCLOPRAMIDE 10 MG/2 ML VIAL IVP STA (13:11)
[2019-07-20] MEDS ORDERED: PANTOPRAZOLE 40 MG VIAL IVP STA (13:12)
[2019-07-20] MEDS ORDERED: HALOPERIDOL 5 MG/ML VIAL IVP STA (14:11)
[2019-07-20] MEDS ORDERED: diphenhydrAMINE INJ 50 MG/ML VIAL IVP STA (14:11)
--- NOTE | 2019-07-20 14:25 | Ultrasound Report ---
Reason: RUQ pain, vomiting Procedure Date: 07/20/2019 Accession Number: [id number] / [id number] Procedure: US - Abdomen Limited CPT Code: FULL RESULT: EXAM: ABDOMEN ULTRASOUND LIMITED, RUQ EXAM DATE: 07/20/2019 02:03 PM. CLINICAL HISTORY: RUQ pain, vomiting. COMPARISON: ABDOMEN LIMITED 04/14/2019 10:21 AM. TECHNIQUE: Real-time scanning was performed with static images obtained. FINDINGS: Liver: Mildly heterogeneous and coarsened hepatic echotexture. No focal liver lesions seen. Right liver measures 19.9 cm. Main portal vein flow: Hepatopetal. Gallbladder: Normal. No stones, wall thickening, or sonographic Salazar's sign. Biliary System: CBD measures 3 mm. No intrahepatic or extrahepatic ductal dilatation. Other: Mild right extra renal pelvis. No hydronephrosis. IMPRESSION: 1. Mildly heterogeneous hepatic echotexture could reflect possible mild hepatitis. No focal liver lesions. 2. No cholelithiasis or evidence for acute cholecystitis. 3. No biliary dilation. RADIA
[2019-07-20 14:56] LABS: MUDS CUTOFF CONCENTRATIONS CUTOFF CONC BELOW:
[2019-07-20 15:10] LABS: BILIRUBIN,URINE NEGATIVE (NEGATIVE); GLUCOSE, URINE (UA) NEGATIVE (NEGATIVE); KETONES,URINE (UA) >=80 mg/dL (NEGATIVE); LEUKOCYTE ESTERASE, URINE NEGATIVE (NEGATIVE); NITRITE,URINE NEGATIVE (NEGATIVE); OCCULT BLOOD,URINE LARGE (NEGATIVE); PH,URINE 8.5 PH (5.0-7.5); PROTEIN,URINE TRACE mg/dL (NEGATIVE); UROBILINOGEN,URINE 0.2 (NORMAL) E.U./dL (NORMAL)
[2019-07-20 15:14] LABS: CLARITY,URINE CLOUDY (CLEAR)
[2019-07-20 15:15] LABS: HCG UR QUAL NEGATIVE
[2019-07-20 15:20] LABS: BACTERIA,URINE Few /HPF (None Seen); MUCUS,URINE Few Strands; SQUAMOUS EPITHELIAL CELL,UR MOD Squamous (<= Few)
[2019-07-20 15:21] LABS: AMPHETAMINE SCREEN,URINE NEGATIVE (NEGATIVE); BENZODIAZEPINES SCREEN, URINE NEGATIVE (NEGATIVE); COCAINE SCREEN URINE NEGATIVE (NEGATIVE); METHADONE SCREEN, URINE NEGATIVE (NEGATIVE); METHAMPHETAMINES SCREEN, URINE NEGATIVE (NEGATIVE); OPIATE SCREEN, URINE NEGATIVE (NEGATIVE); OXYCODONE SCREEN, URINE NEGATIVE (NEGATIVE); PROPOXYPHENE SCREEN, URINE NEGATIVE (NEGATIVE); TRICYCLIC ANTIDEPRESSANT,URINE NEGATIVE (NEGATIVE)
[2019-07-20 16:34] VITALS: BP 117/76
== END 2019-07-20 16:34 | disposition home or self-care (01) ==
LOC: ED 11:22
DX: R11.2 Nausea with vomiting, unspecified (principal); R10.13 Epigastric pain; R10.11 Right upper quadrant pain; F12.90 Cannabis use, unspecified, uncomplicated
CPT/HCPCS: 36415; 76705; 80053; 80306; 80307; 80320; 80329; 81001; 81025; 83690; 84443; 85025; 96361; 96374; 96375; 99284; 99285; J1200; J2765; 81003; 87086

== ENCOUNTER 2020-06-13 21:29 | Emergency (ER) | payer MEDICAID ==
--- NOTE | 2020-06-13 21:34 | ED Physician Documentation ---
History of Present Illness - Stated complaint Stated Complaint: VOMITING - History obtained from History obtained from: Patient - Additonal information Additional information: The patient is a 25-year-old female presents with a chief complaint of nausea and vomiting for the last 2 days. She reports she is unable to keep her control pill down. She denies marijuana use she reports she has a history of hyperemesis gravidarum and thinks that she may be possibly.She denies abdominal pain or fevers chills or night sweats denies vaginal bleeding or dysuria hematuria. Review of Systems Constitutional: reports: Reviewed and negative Eyes: reports: Reviewed and negative Ears: reports: Reviewed and negative Nose: reports: Reviewed and negative Throat: reports: Reviewed and negative Cardiac: reports: Reviewed and negative Respiratory: reports: Reviewed and negative GI: reports: Nausea, Vomiting : reports: Reviewed and negative Skin: reports: Reviewed and negative Musculoskeletal: reports: Reviewed and negative Neurologic: reports: Reviewed and negative Psychiatric: reports: Reviewed and negative Endocrine: reports: Reviewed and negative Immunocompromised: reports: Reviewed and negative PD PAST MEDICAL HISTORY - Past Medical History Cardiovascular: None Respiratory: None Endocrine/Autoimmune: None GI: None 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 HEENT: None Psych: Depression Musculoskeletal: Chronic back pain Derm: None - Past Surgical History Past Surgical History: Yes /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 - Present Medications Home Medications: Ambulatory Orders Medication Instructions Recorded Confirmed Ondansetron Odt [Zofran Odt] 4 mg PO Q6H PRN #10 tablet 07/18/19 Ondansetron Odt [Zofran Odt] 4 mg TL Q6H PRN #10 tablet 06/13/20 - Allergies Allergies/Adverse Reactions: Allergies Allergy/AdvReac Type Severity Reaction Status Date / Time No Known Drug Allergies Allergy Verified 06/13/20 21:39 - Social History Does the pt smoke?: No Smoking Status: Never smoker Does the pt drink ETOH?: Yes Does the pt have substance abuse?: No - Immunizations Immunizations are current?: Yes - POLST Patient has POLST: No PD ED PE NORMAL - Vitals Vital signs reviewed: Yes - General General: Alert and oriented X 3, No acute distress, Well developed/nourished - HEENT HEENT: Atraumatic, PERRL, EOMI, Ears normal, Moist mucous membranes, Pharynx benign, Dentition benign - Neck Neck: Supple, no meningeal sign, No adenopathy - Cardiac Cardiac: RRR, No murmur, Strong equal pulses - Respiratory Respiratory: No respiratory distress, Clear bilaterally - Abdomen Abdomen: Normal bowel sounds, Soft, Non tender, Non distended, No organomegaly - Back Back: No CVA TTP, No spinal TTP - Derm Derm: Normal color, Warm and dry, No rash - Extremities Extremities: No deformity, No tenderness to palpate, Normal ROM s pain, No edema, No calf tenderness / cord - Neuro Neuro: Alert and oriented X 3, wire mesh knitter 2-12 intact, No motor deficit, No sensory deficit, Normal speech - Psych Psych: Normal mood, Normal affect Results - Vitals Vitals: Vital Signs - 24 hr 06/13/20 06/13/20 21:30 22:08 Temperature 36.4 C L 36.4 C L Heart Rate 94 94 Respiratory 20 20 Rate Blood Pressure 139/80 H 139/80 H O2 Saturation 95 95 Oxygen O2 Source Room air - Labs Labs: Laboratory Tests 06/13/20 06/13/20 06/13/20 10:15 10:15 21:41 WBC 13.8 H RBC 4.67 Hgb 12.2 Hct 37.5 MCV 80.3 L MCH 26.1 L MCHC 32.5 RDW 15.1 H Plt Count 367 MPV 8.7 Neut # (Auto) 12.4 H Lymph # (Auto) 1.0 L [place] # (Auto) 0.3 Eos # (Auto) 0.0 Baso # (Auto) 0.1 Absolute Nucleated RBC 0.00 Nucleated RBC % 0.0 Sodium 137 Potassium 3.6 Chloride 102 Carbon Dioxide 20 L Anion Gap 15.0 H BUN 11 Creatinine 0.6 Estimated GFR (MDRD) 120 Glucose 122 H Calcium 9.3 Total Bilirubin 1.2 H AST 23 ALT 21 Alkaline Phosphatase 66 Total Protein 7.7 Albumin 4.5 Globulin 3.2 Albumin/Globulin Ratio 1.4 Lipase 52 H Urine Color YELLOW Urine Clarity HAZY Urine pH 5.5 Ur Specific [place] >=1.030 H Urine Protein 30 H Urine Glucose (UA) NEGATIVE Urine Ketones >=80 H Urine Occult Blood NEGATIVE Urine Nitrite NEGATIVE Urine Bilirubin NEGATIVE Urine Urobilinogen 0.2 (NORMAL) Ur Leukocyte Esterase NEGATIVE Urine RBC None Seen Urine WBC 0-3 Ur Squamous Epith Cells FEW Squamous Urine Bacteria Rare Urine Mucus Marked Strands Ur Microscopic Review INDICATED Urine Culture Comments NOT INDICATED Urine HCG, Qual 06/13/20 21:41 WBC RBC Hgb Hct MCV MCH MCHC RDW Plt Count MPV Neut # (Auto) Lymph # (Auto) [place] # (Auto) Eos # (Auto) Baso # (Auto) Absolute Nucleated RBC Nucleated RBC % Sodium Potassium Chloride Carbon Dioxide Anion Gap BUN Creatinine Estimated GFR (MDRD) Glucose Calcium Total Bilirubin AST ALT Alkaline Phosphatase Total Protein Albumin Globulin Albumin/Globulin Ratio Lipase Urine Color Urine Clarity Urine pH Ur Specific [place] >=1.030 H Urine Protein Urine Glucose (UA) Urine Ketones Urine Occult Blood Urine Nitrite Urine Bilirubin Urine Urobilinogen Ur Leukocyte Esterase Urine RBC Urine WBC Ur Squamous Epith Cells Urine Bacteria Urine Mucus Ur Microscopic Review Urine Culture Comments Urine HCG, Qual POSITIVE PD MEDICAL DECISION MAKING - ED course Complexity details: reviewed results, re-evaluated patient, considered differential (, dehydration, hyperemesis gravidum), d/w patient ED course: Patient is a 25-year-old female who presents with possibly being and hyperemesis gravidarum she reports That she has been having vaginal bleeding off and on for the last 6 weeks so she has no definitive first day of her last menstrual period. She reports she is currently breast-feeding and also taking control pills. Her test today in the emergency department does come back positive. I had a lengthy discussion with her regarding that she is going to follow-up with her physician on Monday she is going to stop taking her control pill she was given a prescription for Zofran for her hyperemesis gravidarum, I explained all the benefits alternatives and risk of taking Zofran during such as any adverse outcome to the fetus she assumes all responsibility and accepts the risks of any possible adverse outcome to the fetus while taking Zofran. Departure - Departure Disposition: 01 Home, Self Care Clinical Impression: Hyperemesis gravidarum Qualifiers: Weeks of gestation: less than 8 weeks Qualified Code(s): Z3A.01 - Less than 8 weeks gestation of Condition: Stable Instructions: ED Preg Morning Sickness Follow-Up: your, doctor [Other] Prescriptions: Ondansetron Odt [Zofran Odt] 4 mg TL Q6H PRN #10 tablet PRN Reason: Nausea / Vomiting Comments: take a daily vitamin, follow up with your physician on Monday. return to the emergency department with any concerns.
[2020-06-13] MEDS ORDERED: PROMETHAZINE INJ 25 MG in SODIUM CHLORIDE 0.9% 50 ML IV STA (21:42)
[2020-06-13] MEDS ORDERED: SODIUM CHLORIDE 0.9% 1,000 ML IV STA (21:42)
[2020-06-13 21:49] LABS: GLUCOSE, URINE (UA) NEGATIVE (NEGATIVE); KETONES,URINE (UA) >=80 mg/dL (NEGATIVE); LEUKOCYTE ESTERASE, URINE NEGATIVE (NEGATIVE); NITRITE,URINE NEGATIVE (NEGATIVE); OCCULT BLOOD,URINE NEGATIVE (NEGATIVE); PH,URINE 5.5 PH (5.0-7.5); PROTEIN,URINE 30 mg/dL (NEGATIVE); UROBILINOGEN,URINE 0.2 (NORMAL) E.U./dL (NORMAL)
[2020-06-13 21:55] LABS: BILIRUBIN,URINE NEGATIVE (NEGATIVE); CLARITY,URINE HAZY (CLEAR); HCG UR QUAL POSITIVE; ICTOTEST,URINE NEGATIVE
[2020-06-13] MEDS ORDERED: PROMETHAZINE 25 MG/1 ML VIAL ONE (21:56)
[2020-06-13 22:02] LABS: BACTERIA,URINE Rare /HPF (None Seen); MUCUS,URINE Marked Strands; RBC,URINE None Seen /HPF (0-5); SQUAMOUS EPITHELIAL CELL,UR FEW Squamous (<= Few)
[2020-06-13 22:19] LABS: BASOPHILS # (AUTO) 0.1 10^3/uL (0.0-0.1); BASOPHILS % (AUTO) 0.5 %; HGB - HEMOGLOBIN 12.2 g/dL (12.0-16.0); LYMPHOCYTES % (AUTO) 7.3 %; MEAN CORPUSCULAR HEMOGLOBIN 26.1 pg (27.0-31.0); MEAN CORPUSCULAR HGB CONC 32.5 g/dL (32.0-36.0); MEAN CORPUSCULAR VOLUME 80.3 fL (81.0-99.0); MEAN PLATELET VOLUME 8.7 fL (7.9-10.8); MONOCYTES # (AUTO) 0.3 10^3/uL (0.0-1.0); NEUTROPHILS # (AUTO) 12.4 10^3/uL (1.5-6.6); NEUTROPHILS % (AUTO) 89.8 %; PLT - PLATELET COUNT 367 10^3/uL (130-450); RED BLOOD COUNT 4.67 10^6/uL (4.20-5.40); RED CELL DISTRIBUTION WIDTH 15.1 % (12.0-15.0); WHITE BLOOD COUNT 13.8 x10^3/uL (4.8-10.8)
[2020-06-13 22:33] LABS: ALBUMIN 4.5 g/dL (3.2-5.5); ALBUMIN/GLOBULIN RATIO 1.4 (1.0-2.2); BILIRUBIN,TOTAL 1.2 mg/dL (0.2-1.0); CALCIUM 9.3 mg/dL (8.5-10.3); CREATININE 0.6 mg/dL (0.4-1.0); TOTAL PROTEIN 7.7 g/dL (6.7-8.2)
[2020-06-13 23:04] VITALS: BP 136/81
== END 2020-06-13 23:05 | disposition home or self-care (01) ==
LOC: ED 21:29
DX: O21.0 Mild hyperemesis gravidarum (principal); Z3A.01 Less than 8 weeks gestation of pregnancy
CPT/HCPCS: 36415; 80053; 81001; 81025; 83690; 85025; 96365; 99283; 99284; J7040; 81003; 87086

== ENCOUNTER 2020-07-01 15:58 | Outpatient (CLI) | payer MEDICAID | END 2020-07-01 15:59 | disposition home or self-care (01) | LOC: LAB.WCP 15:58 | PROVIDERS: ATTEND Nurse Practitioner Obstetrics & Gynecology | DX: O03.9 Complete or unspecified spontaneous abortion without complication (principal) | CPT/HCPCS: 36415; 84702 ==

== ENCOUNTER 2020-07-03 15:03 | Outpatient (CLI) | payer MEDICAID | END 2020-07-03 23:59 | disposition home or self-care (01) | LOC: LAB.WCP 15:03 | PROVIDERS: ATTEND Nurse Practitioner Obstetrics & Gynecology | DX: O03.9 Complete or unspecified spontaneous abortion without complication (principal) | CPT/HCPCS: 36415; 84702 ==

== ENCOUNTER 2020-07-10 13:48 | Outpatient (CLI) | payer MEDICAID | END 2020-07-10 13:49 | disposition home or self-care (01) | LOC: LAB.WCP 13:48 | PROVIDERS: ATTEND Nurse Practitioner Obstetrics & Gynecology | DX: O03.9 Complete or unspecified spontaneous abortion without complication (principal) | CPT/HCPCS: 36415; 84702 ==

== ENCOUNTER 2020-07-17 08:00 | Outpatient (CLI) | payer MEDICAID | END 2020-07-17 23:59 | disposition home or self-care (01) | LOC: LAB.WCP 08:00 | PROVIDERS: ATTEND Nurse Practitioner Obstetrics & Gynecology | DX: O03.9 Complete or unspecified spontaneous abortion without complication (principal) | CPT/HCPCS: 36415; 84702 ==

== ENCOUNTER 2020-09-28 11:21 | Emergency (ER) | payer MEDICAID ==
[2020-09-28 11:46] LABS: BILIRUBIN,URINE NEGATIVE (NEGATIVE); GLUCOSE, URINE (UA) NEGATIVE (NEGATIVE); KETONES,URINE (UA) NEGATIVE (NEGATIVE); LEUKOCYTE ESTERASE, URINE NEGATIVE (NEGATIVE); NITRITE,URINE NEGATIVE (NEGATIVE); OCCULT BLOOD,URINE NEGATIVE (NEGATIVE); PROTEIN,URINE NEGATIVE (NEGATIVE); UROBILINOGEN,URINE 0.2 (NORMAL) E.U./dL (NORMAL)
[2020-09-28 11:48] LABS: CLARITY,URINE CLEAR (CLEAR); HCG UR QUAL NEGATIVE
[2020-09-28 11:53] LABS: BASOPHILS # (AUTO) 0.1 10^3/uL (0.0-0.1); BASOPHILS % (AUTO) 1.6 %; EOSINOPHILS # (AUTO) 0.2 10^3/uL (0.0-0.7); EOSINOPHILS % (AUTO) 3.2 %; HGB - HEMOGLOBIN 11.9 g/dL (12.0-16.0); LYMPHOCYTES # (AUTO) 2.5 10^3/uL (1.5-3.5); LYMPHOCYTES % (AUTO) 39.8 %; MEAN CORPUSCULAR HEMOGLOBIN 23.3 pg (27.0-31.0); MEAN CORPUSCULAR HGB CONC 30.4 g/dL (32.0-36.0); MEAN CORPUSCULAR VOLUME 76.5 fL (81.0-99.0); MEAN PLATELET VOLUME 9.2 fL (7.9-10.8); MONOCYTES # (AUTO) 0.3 10^3/uL (0.0-1.0); MONOCYTES % (AUTO) 5.5 %; NEUTROPHILS # (AUTO) 3.1 10^3/uL (1.5-6.6); NEUTROPHILS % (AUTO) 49.7 %; PLT - PLATELET COUNT 386 10^3/uL (130-450); RED BLOOD COUNT 5.11 10^6/uL (4.20-5.40); RED CELL DISTRIBUTION WIDTH 15.8 % (12.0-15.0); WHITE BLOOD COUNT 6.2 x10^3/uL (4.8-10.8)
--- NOTE | 2020-09-28 11:53 | ED Physician Documentation ---
PD HPI ABD PAIN - Stated complaint Stated Complaint: ABD PX - Chief complaint Chief Complaint: Abd Pain - History obtained from History obtained from: Patient - History of Present Illness Timing - onset: Enter time (0700), Today Timing - duration: Hours Timing - details: Abrupt onset, Still present Quality: Sharp, Pain Location: Suprapubic Radiation: No: Left flank, Right flank Improved by: Other (time) Associated symptoms: Nausea, Dizzy, Other (diaphoresis). No: Fever, Vomiting Similar symptoms before: Diagnosis (ovarian cyst on R with teratoma) Recently seen: Other - Additional information Additional information: 25-year-old female who has become on 2 different forms of control had a termination in June from her last and she is now started on control pill and she is having acute suprapubic cramping which she thought was like a menstrual cramp this morning when she got up to go to work and at about 10:00 this morning she developed severe suprapubic pain enough that it made her diaphoretic and nauseous. She has come to the emergency department for evaluation. Review of Systems Constitutional: reports: Sweats. 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 HEENT: None Psych: Depression Musculoskeletal: Chronic back pain Derm: None - Past Surgical History Past Surgical History: Yes /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 - Present Medications Home Medications: Ambulatory Orders Medication Instructions Recorded Confirmed Hydrocodone/Acetaminophen [[place] 1 - 2 each PO Q6HR PRN #14 tablet 09/28/20 5-325 Tablet] - Allergies Allergies/Adverse Reactions: Allergies Allergy/AdvReac Type Severity Reaction Status Date / Time No Known Drug Allergies Allergy Verified 09/28/20 11:27 - Social History Does the pt smoke?: No Smoking Status: Never smoker Does the pt drink ETOH?: No Does the pt have substance abuse?: No Substance Use and Type: Marijuana - Immunizations Immunizations are current?: Yes - POLST Patient has POLST: No PD ED PE NORMAL - Vitals Vital signs reviewed: Yes (normal ) - General General: Alert and oriented X 3, No acute distress, Well developed/nourished - HEENT HEENT: Atraumatic, PERRL, EOMI - Neck Neck: Supple, no meningeal sign, No bony TTP - Cardiac Cardiac: RRR, No murmur - Respiratory Respiratory: No respiratory distress, Clear bilaterally - Abdomen Abdomen: Normal bowel sounds, Soft, Non distended, No organomegaly, Other (mild suprapubic tenderness reproduces the symptms the patient is experiencing .) - Back Back: No CVA TTP, No spinal TTP - Derm Derm: Normal color, Warm and dry, No rash - Extremities Extremities: No deformity, No edema - Neuro Neuro: Alert and oriented X 3, radio frequency technician 2-12 intact, No motor deficit, No sensory deficit, Normal speech Eye Opening: Spontaneous Motor: Obeys Commands Verbal: Oriented GCS Score: 15 - Psych Psych: Normal mood, Normal affect Results - Vitals Vitals: Vital Signs - 24 hr 09/28/20 09/28/20 11:27 13:39 Temperature 36.4 C L 36.5 C Heart Rate 87 73 Respiratory 18 19 Rate Blood Pressure 127/72 111/64 O2 Saturation 100 100 Oxygen O2 Source Room air - Labs Labs: Laboratory Tests 09/28/20 09/28/20 09/28/20 11:31 11:43 11:45 WBC 6.2 RBC 5.11 Hgb 11.9 L Hct 39.1 MCV 76.5 L MCH 23.3 L MCHC 30.4 L RDW 15.8 H Plt Count 386 MPV 9.2 Neut # (Auto) 3.1 Lymph # (Auto) 2.5 [place] # (Auto) 0.3 Eos # (Auto) 0.2 Baso # (Auto) 0.1 Absolute Nucleated RBC 0.00 Nucleated RBC % 0.0 Sodium 137 Potassium 3.7 Chloride 108 Carbon Dioxide 23 Anion Gap 6.0 BUN 12 Creatinine 0.7 Estimated GFR (MDRD) 100 Glucose 108 H Calcium 9.0 Total Bilirubin 0.9 AST 22 ALT 17 Alkaline Phosphatase 52 Total Protein 8.0 Albumin 4.8 Globulin 3.2 Albumin/Globulin Ratio 1.5 Lipase 45 Urine Color YELLOW Urine Clarity CLEAR Urine pH 6.0 Ur Specific [place] 1.025 Urine Protein NEGATIVE Urine Glucose (UA) NEGATIVE Urine Ketones NEGATIVE Urine Occult Blood NEGATIVE Urine Nitrite NEGATIVE Urine Bilirubin NEGATIVE Urine Urobilinogen 0.2 (NORMAL) Ur Leukocyte Esterase NEGATIVE Ur Microscopic Review NOT INDICATED Urine Culture Comments NOT INDICATED Urine HCG, Qual NEGATIVE - Rads (name of study) u/s pelvic Radiology: Prelim report reviewed (Impression: Complex cystic lesion involving the left ovary with internal echoes, possibly hemorrhagic cyst however technically nonspecific. Recommend follow-up with 6-week interval pelvic ultrasound to document resolution. ), EMP read indepedently, See rad report PD MEDICAL DECISION MAKING - ED course Complexity details: reviewed old records, reviewed results, re-evaluated patient, considered differential, d/w patient ED course: 25-year-old female with acute pelvic pain is found to have hemorrhagic cyst on ultrasound examination.She has improvement in her pain without specific interventions and she is referred to women's health for follow-up. Departure - Departure Disposition: 01 Home, Self Care Clinical Impression: Cyst of ovary Qualifiers: Laterality: left Qualified Code(s): N83.202 - Unspecified ovarian cyst, left side Condition: Stable Instructions: ED Cyst Ovarian Follow-Up: Desiree Rowland ARNP [Primary Care Provider] - Prescriptions: Hydrocodone/Acetaminophen [[place] 5-325 Tablet] 1 - 2 each PO Q6HR PRN #14 tablet PRN Reason: Pain
[2020-09-28 12:13] LABS: ALBUMIN 4.8 g/dL (3.2-5.5); ALBUMIN/GLOBULIN RATIO 1.5 (1.0-2.2); BILIRUBIN,TOTAL 0.9 mg/dL (0.2-1.0); CREATININE 0.7 mg/dL (0.4-1.0)
--- NOTE | 2020-09-28 14:07 | Ultrasound Report ---
PROCEDURE: Pelvic w/Transvag+Doppler Comp INDICATIONS: pelvic pain, R TECHNIQUE: Real-time scanning was performed of the pelvic organs, with image documentation. Additional endovagi nal scanning was necessary due to incomplete visualization of the adnexal and endometrial structures by transabdominal scanning. COMPARISON: None. FINDINGS: Transabdominal scanning: Limited scanning through the kidneys shows no hydronephrosis. There is mode rate fluid seen within the adnexa bilaterally Endovaginal scanning: Uterus: Uterus is normal in size at 7.6 x 4.5 x 6.3 cm. The endometrium measures 5 mm in combined t hickness. Ovaries: The right ovary measures 2.3 x 2.0 x 2.3 cm and is unremarkable. Left ovary measures 6.1 x 3.2 x 4.4 cm. There is a possible hemorrhagic cyst with low-level internal and reticular echoes measuring 4.4 x 2.1 x 3.2 cm however technically nonspecific finding IMPRESSION: Complex cystic lesion involving the left ovary with internal echoes, possibly hemorrhagic cyst howeve r technically nonspecific. Recommend follow-up with 6 week interval pelvic ultrasound to document res olution. Reviewed by: Richardson Hawley MD on 09/28/2020 2:05 PM PST Approved by: Richardson Hawley MD on 09/28/2020 2:05 PM PST Station ID: [id number]
[2020-09-28 14:46] VITALS: BP 117/72
== END 2020-09-28 14:58 | disposition home or self-care (01) ==
LOC: ED 11:21
DX: N83.202 Unspecified ovarian cyst, left side (principal)
CPT/HCPCS: 36415; 80053; 81001; 81003; 81025; 83690; 85025; 87086; 93975; 99284

== ENCOUNTER 2021-08-23 15:56 | Outpatient (CLI) | payer MEDICAID | END 2021-08-23 23:59 | disposition home or self-care (01) | LOC: LAB 15:56 | PROVIDERS: ATTEND Nurse Practitioner | DX: J06.9 Acute upper respiratory infection, unspecified (principal); Z20.822 Contact with and (suspected) exposure to COVID-19 ==

== ENCOUNTER 2021-10-05 16:02 | Emergency (ER) | payer MEDICAID ==
[2021-10-05] MEDS ORDERED: PROCHLORPERAZINE 10 MG/2 ML VIAL IVP STA (17:16)
[2021-10-05] MEDS ORDERED: SODIUM CHLORIDE 0.9% 1,000 ML IV STA (17:28)
--- NOTE | 2021-10-05 17:28 | ED Physician Documentation ---
History of Present Illness - Stated complaint Stated Complaint: C+ N/V - Chief complaint Chief Complaint: General - Additonal information Additional information: 26-year-old female presents to the emergency department for evaluation of uncont rolled nausea and vomiting in first trimester . She reports that she was just diagnosed is . LMP 08/19/2021. G3, P2. Previous vaginal deliveries. She states that she has had hyperemesis gravidarum with each of her previous pregnancies however today Zofran has not alleviated her symptoms. She is incidentally COVID-19 positive. She tested +1-week ago. She is not yet vaccinated for COVID-19. Review of Systems Constitutional: denies: Fever, Chills Eyes: reports: Reviewed and negative Nose: reports: Reviewed and negative Throat: reports: Reviewed and negative Cardiac: reports: Reviewed and negative GI: reports: Nausea, Vomiting. 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 FINISHER: Other - Present Medications Home Medications: Ambulatory Orders Medication Instructions Recorded Confirmed Hydrocodone/Acetaminophen [Bronson 1 - 2 each PO Q6HR PRN #14 tablet 09/28/20 5-325 Tablet] cephALEXin [Keflex] 500 mg PO BID #14 cap 10/05/21 - Allergies Allergies/Adverse Reactions: Allergies Allergy/AdvReac Type Severity Reaction Status Date / Time No Known Drug Allergies Allergy Verified 10/05/21 17:17 - Social History Does the pt smoke?: No Smoking Status: Never smoker Does the pt drink ETOH?: No Does the pt have substance abuse?: No - Immunizations Immunizations are current?: Yes - POLST Patient has POLST: No PD ED PE NORMAL - General General: Alert and oriented X 3, No acute distress - HEENT HEENT: PERRL - Respiratory Respiratory: Clear bilaterally - Abdomen Abdomen: Normal bowel sounds, Soft, Non tender, Non distended - Back Back: No CVA TTP - Derm Derm: Normal color Results - Vitals Vitals: Vital Signs - 24 hr 10/05/21 17:13 Temperature 36.9 C Heart Rate 87 Respiratory 16 Rate Blood Pressure 119/89 H O2 Saturation 99 Oxygen O2 Source Room air - Labs Labs: Laboratory Tests 10/05/21 10/05/21 10/05/21 17:29 17:29 17:29 WBC 8.6 RBC 5.42 H Hgb 13.7 Hct 41.5 MCV 76.6 L MCH 25.3 L MCHC 33.0 RDW 15.1 H Plt Count 359 MPV 9.4 Neut # (Auto) 6.5 Lymph # (Auto) 1.5 [place] # (Auto) 0.4 Eos # (Auto) 0.0 Baso # (Auto) 0.0 Absolute Nucleated RBC 0.00 Nucleated RBC % 0.0 Sodium 135 Potassium 3.4 L Chloride 101 Carbon Dioxide 21 Anion Gap 13.0 BUN 10 Creatinine 0.6 Estimated GFR (MDRD) 119 Glucose 93 Calcium 9.4 Total Bilirubin 1.2 H AST 30 ALT 28 Alkaline Phosphatase 47 Total Protein 8.0 Albumin 4.6 Globulin 3.4 Albumin/Globulin Ratio 1.4 Lipase 42 HCG, Quant 05424.00 Urine Color Urine Clarity Urine pH Ur Specific [place] Urine Protein Urine Glucose (UA) Urine Ketones Urine Occult Blood Urine Nitrite Urine Bilirubin Urine Urobilinogen Ur Leukocyte Esterase Urine RBC Urine WBC Ur Squamous Epith Cells Urine Bacteria Urine Mucus Ur Microscopic Review Urine Culture Comments Blood Type 10/05/21 10/05/21 17:29 17:50 WBC RBC Hgb Hct MCV MCH MCHC RDW Plt Count MPV Neut # (Auto) Lymph # (Auto) [place] # (Auto) Eos # (Auto) Baso # (Auto) Absolute Nucleated RBC Nucleated RBC % Sodium Potassium Chloride Carbon Dioxide Anion Gap BUN Creatinine Estimated GFR (MDRD) Glucose Calcium Total Bilirubin AST ALT Alkaline Phosphatase Total Protein Albumin Globulin Albumin/Globulin Ratio Lipase HCG, Quant Urine Color YELLOW Urine Clarity HAZY Urine pH 6.0 Ur Specific [place] >=1.030 H Urine Protein 30 H Urine Glucose (UA) NEGATIVE Urine Ketones >=80 H Urine Occult Blood NEGATIVE Urine Nitrite NEGATIVE Urine Bilirubin NEGATIVE Urine Urobilinogen 0.2 (NORMAL) Ur Leukocyte Esterase NEGATIVE Urine RBC 0-5 Urine WBC 4-5 Ur Squamous Epith Cells MANY Squamous H Urine Bacteria Moderate H Urine Mucus Marked Strands Ur Microscopic Review INDICATED Urine Culture Comments NOT INDICATED Blood Type A POSITIVE - Rads (name of study) pelvic US Radiology: Final report received (Interim 6 weeks 1 day. Positive heart rate. Subchorionic hemorrhage measuring 1.8 x 1.5 cm in largest dimension.) PD MEDICAL DECISION MAKING - ED course Complexity details: reviewed results, re-evaluated patient, considered differential, d/w patient ED course: 26-year-old female presents emergency department for evaluation of uncontrolled nausea and vomiting. She is in her first trimester. LMP August 19, 2021. She is also Covid positive and tested positive about 1 week ago. She is denying cough or fevers. No dysuria urgency or frequency. She states that with her previous she has had hyperemesis. Typically is controlled with Zofran but it was not today. Today in the emergency department she was given a liter of IV fluids as well as Compazine with good resolution of her symptoms now tolerating p.o.'s. She reports that she has a prescription to fill for Zofran and does not want one today. 9 screening labs showed no leukocytosis or electrolyte abnormality. Her hCG was nearly 48,000. Her urine did have bacteria and thus she will be treated for bacteria a prescription for Keflex will be sent to the [facility] in [place]. Pelvic ultrasound did reveal a single IUP measuring approximately 6-week 1 day. However there was an associated subchorionic hemorrhage. I did discuss this with the patient. She is Rh+. We discussed emergent return precautions for concerns of severe vaginal bleeding fevers or vomiting. She is scheduled to establish with OB early next week. Departure - Departure Disposition: 01 Home, Self Care Clinical Impression: Vomiting affecting , Antepartum asymptomatic bacteriuria in first trimester, COVID-19 virus infection Subchorionic hematoma in first trimester Qualifiers: Fetus number: single or unspecified fetus Qualified Code(s): O41.8X10 - Other specified disorders of amniotic fluid and membranes, first trimester, not applicable or unspecified; O46.8X1 - Other antepartum hemorrhage, first trimester Condition: Stable Record reviewed to determine appropriate education?: Yes Instructions: ED Preg Morning Sickness Prescriptions: cephALEXin [Keflex] 500 mg PO BID #14 cap Comments: Bree you are seen in the emergency department today for nausea and vomiting the first trimester . Your ultrasound shows that you are approximately 6 weeks 1 day along. You do have an associated small subchorionic hemorrhage. This is where the placenta can begin to separate from the uterine wall. This does put you at risk for miscarriage in early however at this stage in there is nothing that we could do to prevent that from occurring if it was going to. Your labs do show that you have bacteria in the urine. The you do not have any urinary symptoms we typically treat bacteria with antibiotics especially in the first trimester. Please fill the prescription for the Keflex at the [facility] in [place]. It is important that you continue close follow-up with OB that you are scheduled to see next week. If at any point you develop suddenly severe lower abdominal pain, feel that your vomiting is not improving despite the Zofran at home, or have fevers and please return immediately to the ER. You are Covid positive but you can receive the COVID-19 vaccine approximately 90 days after your positive test results. I do recommend that you get vaccinated as soon as you are able.
[2021-10-05 17:38] LABS: BASOPHILS % (AUTO) 0.5 %; HCT - HEMATOCRIT 41.5 % (37.0-47.0); HGB - HEMOGLOBIN 13.7 g/dL (12.0-16.0); LYMPHOCYTES # (AUTO) 1.5 10^3/uL (1.5-3.5); LYMPHOCYTES % (AUTO) 17.8 %; MEAN CORPUSCULAR HEMOGLOBIN 25.3 pg (27.0-31.0); MEAN CORPUSCULAR VOLUME 76.6 fL (81.0-99.0); MEAN PLATELET VOLUME 9.4 fL (7.9-10.8); MONOCYTES # (AUTO) 0.4 10^3/uL (0.0-1.0); MONOCYTES % (AUTO) 5.1 %; NEUTROPHILS # (AUTO) 6.5 10^3/uL (1.5-6.6); NEUTROPHILS % (AUTO) 76.3 %; PLT - PLATELET COUNT 359 10^3/uL (130-450); RED BLOOD COUNT 5.42 10^6/uL (4.20-5.40); RED CELL DISTRIBUTION WIDTH 15.1 % (12.0-15.0); WHITE BLOOD COUNT 8.6 x10^3/uL (4.8-10.8)
[2021-10-05 17:52] LABS: ALBUMIN 4.6 g/dL (3.2-5.5); ALBUMIN/GLOBULIN RATIO 1.4 (1.0-2.2); BILIRUBIN,TOTAL 1.2 mg/dL (0.2-1.0); CALCIUM 9.4 mg/dL (8.5-10.3); CREATININE 0.6 mg/dL (0.4-1.0); POTASSIUM 3.4 mmol/L (3.5-5.0)
[2021-10-05 18:32] LABS: BILIRUBIN,URINE NEGATIVE (NEGATIVE); GLUCOSE, URINE (UA) NEGATIVE (NEGATIVE); KETONES,URINE (UA) >=80 mg/dL (NEGATIVE); LEUKOCYTE ESTERASE, URINE NEGATIVE (NEGATIVE); NITRITE,URINE NEGATIVE (NEGATIVE); OCCULT BLOOD,URINE NEGATIVE (NEGATIVE); PROTEIN,URINE 30 mg/dL (NEGATIVE); UROBILINOGEN,URINE 0.2 (NORMAL) E.U./dL (NORMAL)
[2021-10-05 18:39] LABS: CLARITY,URINE HAZY (CLEAR)
[2021-10-05 19:00] LABS: RBC,URINE 0-5 /HPF (0-5)
[2021-10-05 19:01] LABS: BACTERIA,URINE Moderate /HPF (None Seen); MUCUS,URINE Marked Strands; SQUAMOUS EPITHELIAL CELL,UR MANY Squamous (<= Few)
--- NOTE | 2021-10-05 20:05 | Ultrasound Report ---
PROCEDURE: OB First Trimester w/TV INDICATIONS: + hcg, Establish IUP, C+ OUTSIDE/PRIOR DATING DATA: Last menstrual period (LMP): 08/19/2021. LMP-based estimated date of delivery (BALJINDER): 05/26/2022. First dating scan (date and location): 10/05/2021. Estimated date of delivery (BALJINDER) from first dating scan: 05/30/2022. TECHNIQUE: Real-time scanning was performed of the fetus and maternal pelvic organs, with image documentation. Endovaginal scanning was also performed to better visualize the fetus and maternal ovaries. COMPARISON: FINDINGS: There is a single living intrauterine gestation with a heart rate of 115 bpm. [place]- rump length is 5 mm, corresponding to a 6 week 1 day gestation. Small perigestational hemorrhage keyla uring 18 mm. Measurement variability in dating: +/- 4 weeks by LMP, +/- 7 days by mean sac diameter (use before 6 weeks gestation if crown-rump length not able to be measured), +/- 5 days by crown-rump length (6-12 weeks gestation). Maternal organs: Ovaries there is a corpus luteal cyst within the left ovary.. IMPRESSION: Single living intrauterine gestation. Reviewed by: Costa Winchester MD on 10/05/2021 8:04 PM PST Approved by: Costa Winchester MD on 10/05/2021 8:04 PM PST Station ID: [id number]
[2021-10-05 20:16] VITALS: BP 110/71
== END 2021-10-05 20:17 | disposition home or self-care (01) ==
LOC: ED 16:02
DX: O21.9 Vomiting of pregnancy, unspecified (principal); O98.519 Other viral diseases complicating pregnancy, unspecified trimester; U07.1 COVID-19; O28.8 Other abnormal findings on antenatal screening of mother; Z3A.01 Less than 8 weeks gestation of pregnancy; O20.8 Other hemorrhage in early pregnancy
CPT/HCPCS: 36415; 80053; 81001; 81003; 83690; 84702; 85025; 86900; 86901; 87086; 96374; 99283